=== PATIENT | female | born 1955 | race African-American/Black ===

== ENCOUNTER 2016-07-13 12:41 | Emergency (ER) | payer MEDICARE, OTHER ==
[~2016-07-13] VITALS: Ht 162.6 cm; Wt 97.5 kg
[~2016-07-13 12:41] MED LIST: AMLO10TA2 PO
[2016-07-13] MEDS ORDERED: LABETALOL 20 MG/4 ML DISP.SYRIN. IVP ONE ×2 (13:30→14:00)
--- NOTE | 2016-07-13 14:13 | EKG ---
[facility] [address] [place] [address] Test Date: 2016-07-13 Test Time: 13:29:56 Pat Name: RAMAKRISHNA PERDOMO Department: Room: Gender: F Analytical Chemist: : 1955 Requested By: YODIT ADAME Order Number: [id number] Reading MD: Dorothy Quinn Measurements Intervals [place] Rate: 83 P: 29 MA: 148 QRS: 7 QRSD: 78 T: 71 QT: 380 QTc: 447 Interpretive Statements SINUS RHYTHM. MISSING LEAD V 4. OTHERWISE NORMAL EKG. Electronically Signed On 07-15-2016 21:24:30 CDT by Dorothy Quinn
[2016-07-13] MEDS ORDERED: HYDR25TA9 PO (14:26)
--- NOTE | 2016-07-13 14:26 | PHYS DOC ---
Past Medical History Past Medical History: Anxiety, High Cholesterol, Hypertension Past Surgical History: , Other Additional Past Surgical Histo: "parotid gland" Alcohol Use: Rarely Drug Use: None Adult General Chief Complaint Chief Complaint: HYPERTENSION HPI HPI 61-year-old female presenting with high blood pressure. She reports headache. She denies vision changes. she denies polyuria. she denies chest pain. She denies shortness of breath. She describes her headache is sharp mild nonradiating and has been present for greater than 24 hours. She denies it being thunderclap headache. She denies numbness weakness or tingling. Review of systems is negative for chest pain shortness of breath abdominal pain nausea vomiting. All other review of systems is negative unless otherwise noted in history of present illness. Review of Systems Review of Systems SEE ABOVE. Current Medications Current Medications Current Medications Medications (Trade) Dose Ordered Sig/Yen Start Time Stop Time Status Last Admin Dose Admin Labetalol HCl (Normodyne) 20 mg 1X ONCE 07/13/16 14:00 07/13/16 14:01 DC Allergies Allergies Allergies Coded Allergies Type Severity Reaction Last Updated Verified No Known Drug Allergies 07/20/13 No Physical Exam Physical Exam Constitutional: Well developed, well nourished, no acute distress, non-toxic appearance. [] HENT: Normocephalic, atraumatic, bilateral external ears normal, oropharynx moist, no oral exudates, nose normal. [] Eyes: PERRLA, EOMI, conjunctiva normal, no discharge. [] Neck: Normal range of motion, no tenderness, supple, no stridor. [] Cardiovascular:Heart rate regular rhythm, no murmur [] Lungs & Thorax: Bilateral breath sounds clear to auscultation [] Abdomen: Bowel sounds normal, soft, no tenderness, no masses, no pulsatile masses. [] Skin: Warm, dry, no erythema, no rash. [] Back: No tenderness, no CVA tenderness. [] Extremities: No tenderness, no cyanosis, no clubbing, ROM intact, no edema. [] Neurologic: Alert and oriented X 3, normal motor function, normal sensory function, no focal deficits noted. [] Psychologic: Affect normal, judgement normal, mood normal. [] Current Patient Data Vital Signs Vital Signs Date Time Temp Pulse Resp B/P Pulse Ox O2 Delivery O2 Flow Rate FiO2 07/13/16 14:30 82 229/103 98 Room Air 07/13/16 14:00 20 07/13/16 12:44 97.9 97.9 Lab Values Laboratory Tests Test 07/13/16 13:53 POC Troponin I 0.00ng/ml (<0.08) EKG EKG [] Radiology/Procedures Radiology/Procedures [] Course & Med Decision Making Course & Med Decision Making Pertinent Labs and Imaging studies reviewed. (See chart for details) [] 61-year-old female presenting to the emergency department with significant hypertension around 200 systolic. The patient had a headache but was without evidence of end organ dysfunction. EKG not suggestive of ischemic changes. Blood work obtained which showed negative troponin. Otherwise creatinine within normal limits. Patient's blood pressure was treated with IV labetalol the emergency department. On reevaluation her headache had improved. I recommended she take oral fosy-rdd-dueudiq medications for her hypertension and recommended she see one of our primary care doctors to establish care and begin outpatient further evaluation workup and care for her chronic hypertension management. Face -to-face discharge instructions were given. Patient comfortable with plan. Dragon Disclaimer Dragon Disclaimer This electronic medical record was generated, in whole or in part, using a voice recognition dictation system. Departure Departure Impression: Primary Impression: Hypertension Disposition: HOME, SELF-CARE Condition: STABLE Referrals: NO PCP (PCP) HUMAIRA SOLORZANO MD Patient Instructions: Hypertension Additional Instructions: Thank you for allowing us to participate in your care today. Followup with your primary care physician in 3 days if your symptoms do not improve. If you do not have a primary care provider you can ask for a list of our primary care providers. Return to the emergency department you have any new or concerning findings. This should be evaluated by the primary care physician and any necessary consulting services for continued management within a few days after discharge. Return to emergency room if you have any new or concerning symptoms including but not limited to fever, chills, nausea, vomiting, intractable pain, any new rashes, chest pain, shortness of air, uncontrolled bleeding, difficulty breathing, and/or vision loss. Scripts Hydrochlorothiazide (Hydrochlorothiazide Tablet )25 Mg Tablet1 Tab PO DAILY # 14 TAB Ref 5 Prov:YODIT ADAME MD 07/13/16 YODIT ADAME MD Jul 13, 2016 14:26
[2016-07-13 14:30] VITALS: BP 229/103
[2016-07-13 22:25] LABS: POTASSIUM ISTAT 3.4 mmol/L (3.5-5.0)
== END 2016-07-13 14:54 | disposition home or self-care (01) ==
LOC: ER 12:41
DX: I10 Essential (primary) hypertension (principal); R51 Headache; E78.00 Pure hypercholesterolemia, unspecified; F41.9 Anxiety disorder, unspecified
CPT/HCPCS: 80047; 84484; 93005; 96374; 99284; J3490

== ENCOUNTER 2016-12-17 20:10 | Emergency (ER) | payer BC, OTHER ==
[~2016-12-17] VITALS: Ht 162.6 cm; Wt 102.5 kg
[~2016-12-17 20:10] MED LIST changes: +HYDR25TA9 PO
[2016-12-17 20:45] VITALS: BP 219/108
--- NOTE | 2016-12-17 21:46 | PHYS DOC ---
Past Medical History Past Medical History: Anxiety, High Cholesterol, Hypertension Past Surgical History: , Other Additional Past Surgical Histo: "parotid gland removed" Alcohol Use: Rarely Drug Use: None Adult General Chief Complaint Chief Complaint: INSECT BITE HPI HPI Patient is a 61 year old female with history of hypertension high cholesterol and anxiety who presents today with the worst stings as well as right foot/ ankle pain. Patient states she got stung by wasps at around 3 PM today and fell off the porch. Patient denies any anaphylactic reaction. Review of Systems Review of Systems Constitutional: Denies fever or chills [] Eyes: Denies change in visual acuity, redness, or eye pain [] HENT: Denies nasal congestion or sore throat [] Respiratory: Denies cough or shortness of breath [] Cardiovascular: No additional information not addressed in HPI [] GI: Denies abdominal pain, nausea, vomiting, bloody stools or diarrhea [] : Denies dysuria or hematuria [] Musculoskeletal: right foot/ankle pain Integument: wasp sting Neurologic: Denies headache, focal weakness or sensory changes [] Endocrine: Denies polyuria or polydipsia [] Current Medications Current Medications Current Medications Medications (Trade) Dose Ordered Sig/Yen Start Time Stop Time Status Last Admin Dose Admin Diphenhydramine HCl (Benadryl) 25 mg 1X ONCE 12/17/16 22:00 12/17/16 22:01 Famotidine (Pepcid) 20 mg 1X ONCE 12/17/16 22:00 12/17/16 22:01 Prednisone (Prednisone) 60 mg 1X ONCE 12/17/16 22:00 12/17/16 22:01 Allergies Allergies Allergies Coded Allergies Type Severity Reaction Last Updated Verified No Known Drug Allergies 07/20/13 No Physical Exam Physical Exam Constitutional: Well developed, well nourished, no acute distress, non-toxic appearance. [] HENT: Normocephalic, atraumatic, bilateral external ears normal, oropharynx moist, no oral exudates, nose normal. [] Eyes: PERRLA, EOMI, conjunctiva normal, no discharge. [] Neck: Normal range of motion, no tenderness, supple, no stridor. [] Cardiovascular:Heart rate regular rhythm, no murmur [] Lungs & Thorax: Bilateral breath sounds clear to auscultation [] Abdomen: Bowel sounds normal, soft, no tenderness, no masses, no pulsatile masses. [] Skin: An area of erythema noted on patient's right thigh consistent with an insect sting. Back: No tenderness, no CVA tenderness. [] Extremities: Right foot and ankle with no obvious deformity. No tenderness on palpation of the right foot or ankle. Full range of motion to the right foot and ankle. +2 right pedal pulse. Cap refill less than 2 seconds the right toes. Neurologic: Alert and oriented X 3, normal motor function, normal sensory function, no focal deficits noted. [] Psychologic: Affect normal, judgement normal, mood normal. [] Current Patient Data Vital Signs Vital Signs Date Time Temp Pulse Resp B/P (MAP) Pulse Ox O2 Delivery O2 Flow Rate FiO2 12/17/16 20:45 97.8 98 18 96 Room Air 97.8 EKG EKG [] Radiology/Procedures Radiology/Procedures [] Course & Med Decision Making Course & Med Decision Making Pertinent Labs and Imaging studies reviewed. (See chart for details) Patient is in the ED with the wasp stings. She does not have any anaphylactic reaction. She was started on prednisone and Benadryl and Pepcid in the ED. She was discharged with the same. She also sprained her foot/ankle when she fell off the porch running away from the worst. Right foot/ ankle was Zeke wrapped by the ED RN, neurovascular exam done by me is normal, cap refill less than 2 seconds. Ice elevation encouraged. Follow-up with orthopedic doctor in one week if pain continues. Dragon Disclaimer Dragon Disclaimer This electronic medical record was generated, in whole or in part, using a voice recognition dictation system. Departure Departure Impression: Primary Impression: Fall from height of greater than 3 feet Additional Impressions: Right ankle sprain Right foot sprain Wasp sting Disposition: 01 HOME, SELF-CARE Condition: STABLE Referrals: NO PCP (PCP) follow up with your doctor next week Patient Instructions: Ankle Sprain, Bee, Wasp, or Hornet Sting, Foot Sprain- Brief Additional Instructions: You were seen for wasps stings and right ankle and foot sprain. Ice and elevate the extremity. Take the prescribed medicines as ordered. Come back to the ED for any concerning or worsening symptoms. Scripts Diphenhydramine Hcl (BENADRYL) 25 Mg Capsule 1 CAP PO Q4HRS W/A, #30 CAP 1 Refill Prov: PRINCE LUECRO EDUAR 12/17/16 Famotidine (FAMOTIDINE) 20 Mg Tablet 20 MG PO DAILY, #7 TAB Prov: PRINCE LUCERO EDUAR 12/17/16 Prednisone (PREDNISONE) 50 Mg Tablet 1 TAB PO DAILY, #4 TAB Prov: PRINCE LUCERO EDUAR 12/17/16 Problem Qualifiers Additional Impressions: Right ankle sprain Encounter type: initial encounter Involved ligament of ankle: unspecified ligament Qualified Codes: S93.401A - Sprain of unspecified ligament of right ankle, initial encounter Right foot sprain Encounter type: initial encounter Qualified Codes: S93.601A - Unspecified sprain of right foot, initial encounter Wasp sting Encounter type: initial encounter Injury intent: accidental or unintentional Qualified Codes: T63.461A - Toxic effect of venom of wasps, accidental (unintentional), initial encounter PRINCE LUCERO EDUAR Dec 17, 2016 21:46
[2016-12-17] MEDS ORDERED: DIPH25CA58 PO (21:51)
[2016-12-17] MEDS ORDERED: FAMO20TA5 PO (21:51)
[2016-12-17] MEDS ORDERED: PRED50TA PO (21:51)
[2016-12-17] MEDS ORDERED: diphenhydrAMINE HCL 25 MG CAPSULE PO ONE (22:00)
[2016-12-17] MEDS ORDERED: predniSONE 20 MG TABLET PO ONE (22:00)
[2016-12-17] MEDS ORDERED: FAMOTIDINE 20 MG TABLET. PO ONE (22:00)
== END 2016-12-17 21:56 | disposition home or self-care (01) ==
LOC: ER 20:10
DX: S93.401A Sprain of unspecified ligament of right ankle, initial encounter (principal); S93.601A Unspecified sprain of right foot, initial encounter; T63.461A Toxic effect of venom of wasps, accidental (unintentional), initial encounter; I10 Essential (primary) hypertension; E78.00 Pure hypercholesterolemia, unspecified; F41.9 Anxiety disorder, unspecified; W17.89XA Other fall from one level to another, initial encounter; Y93.89 Activity, other specified; Y92.89 Other specified places as the place of occurrence of the external cause; Y99.8 Other external cause status
CPT/HCPCS: 99284; J7512; Q0163

== ENCOUNTER 2018-12-17 11:15 | Inpatient (IN) | payer BC, OTHER ==
[~2018-12-17] VITALS: Ht 162.6 cm; Wt 101.8 kg
[~2018-12-17 11:15] MED LIST changes: -AMLO10TA2 PO; +AMLO10TA8 PO; +DILT240C2 PO; +DIPH25CA58 PO; +FAMO20TA5 PO; +HYDR-2145 PO; +HYDR-2869 PO; -HYDR25TA9 PO; +LEVO75TA PO; +PRED50TA PO
[2018-12-17] MEDS: dilTIAZem IV PUSH 25 MG/5 ML VIAL IVP ONE ×2 (11:27→11:44)
[2018-12-17 11:39] LABS: BASO % 1 % (0-3); EOS # 0.1 x10^3/uL (0.0-0.7); EOS % 1 % (0-3); HEMATOCRIT 34.1 % (36.0-47.0); HEMOGLOBIN 11.9 g/dL (12.0-15.5); LYMPH # 1.1 x10^3/uL (1.0-4.8); LYMPH % 13 % (24-48); MEAN CORPUSCULAR HEMOGLOBIN 29 pg (25-35); MEAN CORPUSCULAR HGB CONC 35 g/dL (31-37); MEAN CORPUSCULAR VOLUME 84 fL (79-100); MONO # 1.1 x10^3/uL (0.0-1.1); MONO % 12 % (0-9); NEUT # 6.2 x10^3/uL (1.8-7.7); NEUT % 73 % (31-73); PLATELET COUNT 377 x10^3/uL (140-400); RED BLOOD COUNT 4.07 x10^6/uL (3.50-5.40); RED CELL DISTRIBUTION WIDTH 15.5 % (11.5-14.5); WHITE BLOOD COUNT 8.5 x10^3/uL (4.0-11.0)
[2018-12-17 11:48] LABS: PROTHROMBIN TIME PATIENT 14.1 SEC (11.7-14.0)
[2018-12-17 11:56] LABS: CALCIUM 8.8 mg/dL (8.5-10.1); CREATININE 1.1 mg/dL (0.6-1.0); GFR 61.1
[2018-12-17] MEDS ORDERED: ADENOSINE 6 MG/2 ML VIAL. IV ONE (12:00)
[2018-12-17] MEDS ORDERED: IV NORMAL SALINE 1000ML BAG 1,000 ML IV ONE (12:00)
[2018-12-17] MEDS ORDERED: fentaNYL PF VIAL 100 MCG/2 ML VIAL IV ONE (12:00)
[2018-12-17 12:01] LABS: ALBUMIN 3.1 g/dL (3.4-5.0); ALBUMIN/GLOBULIN RATIO 0.6 (1.0-1.7); MAGNESIUM 1.9 mg/dL (1.8-2.4); TOTAL BILIRUBIN 0.8 mg/dL (0.2-1.0)
--- NOTE | 2018-12-17 12:15 | RAD ---
PORTABLE CHEST 1V History: Palpitations Comparison: November 25, 2018 Findings: Single view of the chest is submitted. There is no infiltrate, pneumothorax, or effusion. Pericardial cardiac silhouette is again enlarged. Impression: 1. There is again enlargement of the pericardial cardiac silhouette. Electronically signed by: Ángel Kuhn MD (12/17/2018 12:12 PM) [facility]
[2018-12-17] MEDS ORDERED: dilTIAZem INJ 125 MG in IV DEXTROSE 5% 100ML 100 ML IV STA (12:29)
[2018-12-17] MEDS ORDERED: POTASSIUM CHLORIDE 20 MEQ TABLET.ER. PO ONE ×2 (12:30→15:15)
[2018-12-17] MEDS ORDERED: METOPROLOL TARTRATE 5 MG/5 ML VIAL. IVP ONE (12:45)
--- NOTE | 2018-12-17 12:58 | PHYS DOC ---
Past Medical History Past Medical History: Anxiety, High Cholesterol, Hypertension Past Surgical History: , Other Additional Past Surgical Histo: "parotid gland removed" Alcohol Use: None Drug Use: None Adult General Chief Complaint Chief Complaint: RAPID HEART RATE HPI HPI Patient is a 63 year old female who presents via EMS because of palpitation. Patient states she has had intermittent episodes of palpitations since 6 AM today without shortness of breath, dizziness, focal neuro deficit, nausea and vomiting. Patient states she had a few coughs with chest soreness. Patient had this same episode of palpitation about 2 weeks ago and had diagnosis of SVT and discharged home with Diltiazem also and hydralazine. She denies recent fever and chills, dehydration, urinary symptoms. Patient had adenosine 6 and 12 mg given by EMS without change of heart rate. EMS reported within 2 doses of Adenosine she had a short time of heart rate of atrial flutter. Review of Systems Review of Systems Constitutional: Denies fever or chills [] Eyes: Denies change in visual acuity, redness, or eye pain [] HENT: Denies nasal congestion or sore throat [] Respiratory: Denies cough or shortness of breath [] Cardiovascular: No additional information not addressed in HPI [] GI: Denies abdominal pain, nausea, vomiting, bloody stools or diarrhea [] : Denies dysuria or hematuria [] Musculoskeletal: Denies back pain or joint pain [] Integument: Denies rash or skin lesions [] Neurologic: Denies headache, focal weakness or sensory changes [] Endocrine: Denies polyuria or polydipsia [] All other systems were reviewed and found to be within normal limits, except as documented in this note. Current Medications Current Medications Current Medications Medications (Trade) Dose Ordered Sig/Yen Start Time Stop Time Status Last Admin Dose Admin Adenosine (Adenocard) 6 mg 1X ONCE 12/17/18 12:00 12/17/18 12:30 DC 12/17/18 12:04 6 MG Diltiazem HCl (Cardizem Iv Push) 20 mg 1X ONCE 12/17/18 11:30 12/17/18 11:31 DC 12/17/18 13:01 20 MG Diltiazem HCl 125 mg/Dextrose 125 ml @ 0 mls/hr 1X STAT 12/17/18 12:29 12/17/18 12:32 DC 12/17/18 12:49 5 MLS/HR Fentanyl Citrate (Fentanyl 2ml Vial) 50 mcg 1X ONCE 12/17/18 12:00 12/17/18 12:01 DC 12/17/18 12:04 50 MCG Metoprolol Tartrate (Lopressor Vial) 5 mg 1X ONCE 12/17/18 12:45 12/17/18 12:46 DC 12/17/18 13:28 5 MG Potassium Chloride (Klor-Con) 40 meq 1X ONCE 12/17/18 12:30 12/17/18 12:31 DC 12/17/18 12:49 40 MEQ Sodium Chloride 1,000 ml @ 1,000 mls/hr 1X ONCE 12/17/18 12:00 12/17/18 12:59 DC 12/17/18 12:04 1,000 MLS/HR Allergies Allergies Allergies Coded Allergies Type Severity Reaction Last Updated Verified No Known Drug Allergies 07/20/13 No Physical Exam Physical Exam Constitutional: Well developed, well nourished, mild distress, non-toxic appearance. [] HENT: Normocephalic, atraumatic. Eyes: PERRLA, EOMI, conjunctiva normal, no discharge. [] Neck: Normal range of motion, no tenderness, supple, no stridor. [] Cardiovascular: Tachycardia , no murmur [] Lungs & Thorax: Bilateral breath sounds clear to auscultation [] Abdomen: Bowel sounds normal, soft, no tenderness, no masses, no pulsatile masses. [] Skin: Warm, dry, no erythema, no rash. [] Back: No tenderness, no CVA tenderness. [] Extremities: No tenderness, no cyanosis, no clubbing, ROM intact, no edema. [] Neurologic: Alert and oriented X 3, no focal deficits noted. [] Psychologic: Affect anxious, judgement normal, mood normal. [] Current Patient Data Vital Signs Vital Signs Date Time Temp Pulse Resp B/P (MAP) Pulse Ox O2 Delivery O2 Flow Rate FiO2 12/17/18 13:28 160 175/99 12/17/18 11:23 98.7 18 99 Nasal Cannula 2.0 98.7 Lab Values Laboratory Tests Test 12/17/18 11:25 White Blood Count 8.5 x10^3/uL (4.0-11.0) Red Blood Count 4.07 x10^6/uL (3.50-5.40) Hemoglobin 11.9 g/dL (12.0-15.5) L Hematocrit 34.1 % (36.0-47.0) L Mean Corpuscular Volume 84 fL (79-100) Mean Corpuscular Hemoglobin 29 pg (25-35) Mean Corpuscular Hemoglobin Concent 35 g/dL (31-37) Red Cell Distribution Width 15.5 % (11.5-14.5) H Platelet Count 377 x10^3/uL (140-400) Neutrophils (%) (Auto) 73 % (31-73) Lymphocytes (%) (Auto) 13 % (24-48) L Monocytes (%) (Auto) 12 % (0-9) H Eosinophils (%) (Auto) 1 % (0-3) Basophils (%) (Auto) 1 % (0-3) Neutrophils # (Auto) 6.2 x10^3/uL (1.8-7.7) Lymphocytes # (Auto) 1.1 x10^3/uL (1.0-4.8) Monocytes # (Auto) 1.1 x10^3/uL (0.0-1.1) Eosinophils # (Auto) 0.1 x10^3/uL (0.0-0.7) Basophils # (Auto) 0.0 x10^3/uL (0.0-0.2) Prothrombin Time 14.1 SEC (11.7-14.0) H Prothrombin Time INR 1.1 (0.8-1.1) Sodium Level 139 mmol/L (136-145) Potassium Level 3.0 mmol/L (3.5-5.1) L Chloride Level 103 mmol/L (98-107) Carbon Dioxide Level 23 mmol/L (21-32) Anion Gap 13 (6-14) Blood Urea Nitrogen 18 mg/dL (7-20) Creatinine 1.1 mg/dL (0.6-1.0) H Estimated GFR (Cockcroft-Gault) 61.1 BUN/Creatinine Ratio 16 (6-20) Glucose Level 126 mg/dL (70-99) H Calcium Level 8.8 mg/dL (8.5-10.1) Magnesium Level 1.9 mg/dL (1.8-2.4) Total Bilirubin 0.8 mg/dL (0.2-1.0) Aspartate Amino Transferase (AST) 12 U/L (15-37) L Alanine Aminotransferase (ALT) 19 U/L (14-59) Alkaline Phosphatase 95 U/L (46-116) Creatine Kinase 63 U/L (26-192) Troponin I Quantitative < 0.017 ng/mL (0.000-0.055) AM-Szm-S-Type Natriuretic Peptide 558 pg/mL (0-124) H Total Protein 8.0 g/dL (6.4-8.2) Albumin 3.1 g/dL (3.4-5.0) L Albumin/Globulin Ratio 0.6 (1.0-1.7) L Lipase 58 U/L (73-393) L Laboratory Tests 12/17/18 11:25 Laboratory Tests 12/17/18 11:25 EKG EKG EKG interpreted by me. EKG at 1119 showed 60-162, ST abnormalities in inferior leads, no acute ST and T-wave elevation. Radiology/Procedures Radiology/Procedures [][facility] [address] [place] [address] IMAGING REPORT Signed PATIENT: RAMAKRISHNA PERDOMO ACCOUNT: [id number] : 1955 LOCATION: ER AGE: 63 SEX: F EXAM STATUS: REG ER ORD. PHYSICIAN: ALDO BEAUCHAMP MD REASON: palpitation PROCEDURE: PORTABLE CHEST 1V PORTABLE CHEST 1V History: Palpitations Comparison: November 25, 2018 Findings: Single view of the chest is submitted. There is no infiltrate, pneumothorax, or effusion. Pericardial cardiac silhouette is again enlarged. Impression: 1. There is again enlargement of the pericardial cardiac silhouette. Electronically signed by: Lavonne Kuhn MD (12/17/2018 12:12 PM) [facility] DICTATED and SIGNED BY: LAVONNE KUHN MD DATE: 12/17/18 1212 Course & Med Decision Making Course & Med Decision Making Pertinent Labs and Imaging studies reviewed. (See chart for details) Evaluation of patient in ER showed 63-year-old female patient with history of SVT brought in by EMS because of another episode of SVT that did not respond to adenosine 600 mg given by EMS. Patient had Cardizem in ER [facility] heart rate 140s and then treated with IV fluid and metoprolol and Cardizem 28. Patient had potassium of 3.0 and treated with oral potassium. Heart rate changed to sinus rhythm at rate of 94 after injection of Lopressor. Patient requiring admission for further evaluation and treatment. Discussed with Dr. Mercedes who is in agreement with admission. Discussed findings and plan with patient and family, who acknowledge understanding and agreement. Dragon Disclaimer Dragon Disclaimer This electronic medical record was generated, in whole or in part, using a voice recognition dictation system. Departure Departure Impression: Primary Impression: Tachyarrhythmia Additional Impressions: Hypokalemia Anemia Disposition: ADMITTED INPATIENT Admitting Physician: MARVIN Condition: IMPROVED Referrals: NO PCP (PCP) Critical Care Time Critical care time was 80 minutes exclusive of procedures. The HEART Score for CP Pts HEART Score for Chest Pain: HEART Score for Chest Pain Response (Comments) Value History Slighlty/Non-Suspicious 0 ECG Nonspecific Repolarizatio 1 Age >45 - < 65 1 Risk Factors 1 or 2 Risk Factors 1 Troponin < Normal Limit 0 Total 3 Risk Factors: Risk Factors: DM, Current or recent (<one month) smoker, HTN, HLP, family history of CAD, obesity. Risk Scores: Score 0 - 3: 2.5% MACE over next 6 weeks - Discharge Home Score 4 - 6: 20.3% MACE over next 6 weeks - Admit for Clinical Observation Score 7 - 10: 72.7% MACE over next 6 weeks - Early Invasive Strategies Problem Qualifiers Additional Impressions: Anemia Anemia type: unspecified type Qualified Codes: D64.9 - Anemia, unspecified ALDO BEAUCHAMP MD Dec 17, 2018 12:58
[2018-12-17 13:50] VITALS: BP 153/87
[2018-12-17 15:00] VITALS: BP 91/60
--- NOTE | 2018-12-17 17:07 | PDOC1 ---
History and Physical Date of Admission Date of Admission DATE: 12/17/18 TIME: 17:03 Source Source: Chart review, Patient History of Present Illness History of Present Illness Ms. Moncada, is a 63 year old female who presents via EMS because of palpitation. She has sudden onset of shortness of breath with dizziness and then chest pain, with pain to her back. She did have, nausea and vomiting that are now much improved, prior DC here on D[facility] for AFIB rVR EMS gave . adenosine 6 and 12 mg given by EMS without change of heart rate. afullter/fib in the ER here, dilt gtt started Past Medical History Cardiovascular: HTN, Other (arrythmia) Psych: No pertinent hx Rheumatologic: No pertinent hx Renal/: No pertinent hx Endocrine: Hypothyroidism Past Surgical History Past Surgical History: No pertinent history Family History Family History: Hypertension Family History: Grandparents Social History Smoke: No ALCOHOL: rare Drugs: None Current Problem List Problem List Problems Medical Problems: (1) Anemia Status: Acute (2) Hypokalemia Status: Acute (3) Tachyarrhythmia Status: Acute Current Medications Current Medications Current Medications Diltiazem HCl (Cardizem Iv Push) 20 mg 1X ONCE IVP Last administered on 12/17/18at 13:01; Start 12/17/18 at 11:30; Stop 12/17/18 at 11:31; Status DC Sodium Chloride 1,000 ml @ 1,000 mls/hr 1X ONCE IV Last administered on 12/17/18at 12:04; Start 12/17/18 at 12:00; Stop 12/17/18 at 12:59; Status DC Fentanyl Citrate (Fentanyl 2ml Vial) 50 mcg 1X ONCE IV Last administered on 12/17/18at 12:04; Start 12/17/18 at 12:00; Stop 12/17/18 at 12:01; Status DC Adenosine (Adenocard) 6 mg 1X ONCE IV Last administered on 12/17/18at 12:04; Start 12/17/18 at 12:00; Stop 12/17/18 at 12:30; Status DC Potassium Chloride (Klor-Con) 40 meq 1X ONCE PO Last administered on 12/17/18at 12:49; Start 12/17/18 at 12:30; Stop 12/17/18 at 12:31; Status DC Diltiazem HCl 125 mg/Dextrose 125 ml @ 0 mls/hr 1X STAT IV Last administered on 12/17/18at 12:49; Start 12/17/18 at 12:29; Stop 12/17/18 at 12:32; Status DC Metoprolol Tartrate (Lopressor Vial) 5 mg 1X ONCE IVP Last administered on 12/17/18at 13:28; Start 12/17/18 at 12:45; Stop 12/17/18 at 12:46; Status DC Potassium Chloride (Klor-Con) 40 meq 1X ONCE PO ; Start 12/17/18 at 15:15; Stop 12/17/18 at 15:16; Status DC Active Scripts Active Reported Synthroid (Levothyroxine Sodium) 75 Mcg Tablet 1 Tab PO DAILY Cardizem Cd (Diltiazem Hcl) 240 Mg Cap.er.24h 1 Cap PO DAILY Hydralazine Hcl 50 Mg Tablet 1 Tab PO BID Allergies Allergies: Coded Allergies: No Known Drug Allergies (Unverified , 07/20/13) ROS General: No: Chills, Night Sweats, Fatigue, Malaise, Appetite, Other PSYCHOLOGICAL ROS: No: Anxiety, Behavioral Disorder, Concentration difficultie, Decreased libido, Depression, Disorientation, Hallucinations, Hostility, Irritablity, Memory difficulties, Mood Swings, Obsessive thoughts, Physical abuse, Sexual abuse, Sleep disturbances, Suicidal ideation, Other Eyes: No Blurry vision, No Decreased vision, No Double vision, No Dry eyes, No Excessive tearing, No Eye Pain, No Itchy Eyes, No Loss of vision, No Photophobia, No Scotomata, No Uses contacts, No Uses glasses, No Other HEENT: No: Heacaches, Visual Changes, Hearing change, Nasal congestion, Nasal discharge, Oral lesions, Sinus pain, Sore Throat, Epistaxis, Sneezing, Snoring, Tinnitus, Vertigo, Vocal changes, Other Respiratory: No: Cough, Hemoptysis, Orthopnea, Pleuritic Pain, Shortness of breath, SOB with excertion, Sputum Changes, Stridor, Tachypnea, Wheezing, Other Cardiovascular: No Chest Pain, No Palpitations, No Orthopnea, No Paroxysmal Noc. Dyspnea, No Edema, No Lt Headedness, No Other Gastrointestinal: No Nausea, No Vomiting, No Abdominal Pain, No Diarrhea, No Constipation, No Melena, No Hematochezia, No Other Genitourinary: No Dysuria, No Frequency, No Incontinence, No Hematuria, No Retention, No Discharge, No Urgency, No Pain, No Flank Pain, No Other, No , No , No , No , No , No , No Musculoskeletal: Yes Joint Stiffness; No Gait Disturbance, No Joint Pain, No Joint Swelling, No Muscle Pain, No Muscular Weakness, No Pain In:, No Swelling In:, No Other Neurological: No Behavorial Changes, No Bowel/Bladder ControlChng, No Confusion, No Dizziness, No Gait Disturbance, No Headaches, No Impaired Coord/balance, No Memory Loss, No Numbness/Tingling, No Seizures, No Speech Problems, No Tremors, No Visual Changes, No Weakness, No Other Skin: Yes Dry Skin; No Eczema, No Hair Changes, No Lumps, No Mole Changes, No Mottling, No Nail Changes, No Pruritus, No Rash, No Skin Lesion Changes, No Other, No Acne Physical Exam General: Alert, Oriented X3, No acute distress HEENT: PERRLA, EOMI, Mucous membr. moist/pink Lungs: Clear to auscultation, Normal air movement Heart: S1S2, RRR, no gallops, no murmurs Abdomen: Normal bowel sounds, Soft Extremities: No cyanosis, No edema, Normal pulses Skin: No rashes Neuro: Normal gait, Normal speech, Normal tone, Sensation intact, Cranial nerves 3-12 NL Psych/Mental Status: Mood NL Vitals Vitals Vital Signs Date Time Temp Pulse Resp B/P (MAP) Pulse Ox O2 Delivery O2 Flow Rate FiO2 12/17/18 15:00 97.5 65 16 91/60 (70) 93 Room Air 97.5 12/17/18 13:50 2.0 Labs Labs Laboratory Tests Test 12/17/18 11:25 White Blood Count 8.5 x10^3/uL (4.0-11.0) Red Blood Count 4.07 x10^6/uL (3.50-5.40) Hemoglobin 11.9 g/dL (12.0-15.5) Hematocrit 34.1 % (36.0-47.0) Mean Corpuscular Volume 84 fL (79-100) Mean Corpuscular Hemoglobin 29 pg (25-35) Mean Corpuscular Hemoglobin Concent 35 g/dL (31-37) Red Cell Distribution Width 15.5 % (11.5-14.5) Platelet Count 377 x10^3/uL (140-400) Neutrophils (%) (Auto) 73 % (31-73) Lymphocytes (%) (Auto) 13 % (24-48) Monocytes (%) (Auto) 12 % (0-9) Eosinophils (%) (Auto) 1 % (0-3) Basophils (%) (Auto) 1 % (0-3) Neutrophils # (Auto) 6.2 x10^3/uL (1.8-7.7) Lymphocytes # (Auto) 1.1 x10^3/uL (1.0-4.8) Monocytes # (Auto) 1.1 x10^3/uL (0.0-1.1) Eosinophils # (Auto) 0.1 x10^3/uL (0.0-0.7) Basophils # (Auto) 0.0 x10^3/uL (0.0-0.2) Prothrombin Time 14.1 SEC (11.7-14.0) Prothromb Time International Ratio 1.1 (0.8-1.1) Sodium Level 139 mmol/L (136-145) Potassium Level 3.0 mmol/L (3.5-5.1) Chloride Level 103 mmol/L (98-107) Carbon Dioxide Level 23 mmol/L (21-32) Anion Gap 13 (6-14) Blood Urea Nitrogen 18 mg/dL (7-20) Creatinine 1.1 mg/dL (0.6-1.0) Estimated GFR (Cockcroft-Gault) 61.1 BUN/Creatinine Ratio 16 (6-20) Glucose Level 126 mg/dL (70-99) Calcium Level 8.8 mg/dL (8.5-10.1) Magnesium Level 1.9 mg/dL (1.8-2.4) Total Bilirubin 0.8 mg/dL (0.2-1.0) Aspartate Amino Transf (AST/SGOT) 12 U/L (15-37) Alanine Aminotransferase (ALT/SGPT) 19 U/L (14-59) Alkaline Phosphatase 95 U/L (46-116) Creatine Kinase 63 U/L (26-192) Troponin I Quantitative < 0.017 ng/mL (0.000-0.055) DE-Zdo-M-Type Natriuretic Peptide 558 pg/mL (0-124) Total Protein 8.0 g/dL (6.4-8.2) Albumin 3.1 g/dL (3.4-5.0) Albumin/Globulin Ratio 0.6 (1.0-1.7) Lipase 58 U/L (73-393) Laboratory Tests Test 12/17/18 11:25 White Blood Count 8.5 x10^3/uL (4.0-11.0) Red Blood Count 4.07 x10^6/uL (3.50-5.40) Hemoglobin 11.9 g/dL (12.0-15.5) Hematocrit 34.1 % (36.0-47.0) Mean Corpuscular Volume 84 fL (79-100) Mean Corpuscular Hemoglobin 29 pg (25-35) Mean Corpuscular Hemoglobin Concent 35 g/dL (31-37) Red Cell Distribution Width 15.5 % (11.5-14.5) Platelet Count 377 x10^3/uL (140-400) Neutrophils (%) (Auto) 73 % (31-73) Lymphocytes (%) (Auto) 13 % (24-48) Monocytes (%) (Auto) 12 % (0-9) Eosinophils (%) (Auto) 1 % (0-3) Basophils (%) (Auto) 1 % (0-3) Neutrophils # (Auto) 6.2 x10^3/uL (1.8-7.7) Lymphocytes # (Auto) 1.1 x10^3/uL (1.0-4.8) Monocytes # (Auto) 1.1 x10^3/uL (0.0-1.1) Eosinophils # (Auto) 0.1 x10^3/uL (0.0-0.7) Basophils # (Auto) 0.0 x10^3/uL (0.0-0.2) Prothrombin Time 14.1 SEC (11.7-14.0) Prothromb Time International Ratio 1.1 (0.8-1.1) Sodium Level 139 mmol/L (136-145) Potassium Level 3.0 mmol/L (3.5-5.1) Chloride Level 103 mmol/L (98-107) Carbon Dioxide Level 23 mmol/L (21-32) Anion Gap 13 (6-14) Blood Urea Nitrogen 18 mg/dL (7-20) Creatinine 1.1 mg/dL (0.6-1.0) Estimated GFR (Cockcroft-Gault) 61.1 BUN/Creatinine Ratio 16 (6-20) Glucose Level 126 mg/dL (70-99) Calcium Level 8.8 mg/dL (8.5-10.1) Magnesium Level 1.9 mg/dL (1.8-2.4) Total Bilirubin 0.8 mg/dL (0.2-1.0) Aspartate Amino Transf (AST/SGOT) 12 U/L (15-37) Alanine Aminotransferase (ALT/SGPT) 19 U/L (14-59) Alkaline Phosphatase 95 U/L (46-116) Creatine Kinase 63 U/L (26-192) Troponin I Quantitative < 0.017 ng/mL (0.000-0.055) TZ-Unj-A-Type Natriuretic Peptide 558 pg/mL (0-124) Total Protein 8.0 g/dL (6.4-8.2) Albumin 3.1 g/dL (3.4-5.0) Albumin/Globulin Ratio 0.6 (1.0-1.7) Lipase 58 U/L (73-393) VTE Prophylaxis Ordered VTE Prophylaxis Devices: No VTE Pharmacological Prophylaxi: Yes Assessment/Plan Assessment/Plan chest pain SVT in field then afib RVR here, with afib RVR acute diastolic CHF hypokalemia, may have provoked, 80 meq orderd, check in AM hypothryoid, check TSH obese, BMI 38 admit obs DEYANIRA GOLD MD Dec 17, 2018 17:07
--- NOTE | 2018-12-17 18:30 | EKG ---
[facility] [address] [place] [address] Test Date: 2018-12-17 Test Time: 11:19:23 Pat Name: RAMAKRISHNA PERDOMO Department: Room: Gender: F [employer]: : [id number] Requested By: ALDO BEAUCHAMP Order Number: [id number] Reading MD: Measurements Intervals [place] Rate: 162 P: [place]: QRS: 17 QRSD: 76 T: 5 QT: 290 QTc: 483 Interpretive Statements SUPRAVENTRICULAR TACHYCARDIA ST ABNORMALITY, POSSIBLE INFERIOR SUBENDOCARDIAL INJURY ABNORMAL ECG RI6.01 Unconfirmed report No previous ECG available for comparison
[2018-12-17 19:00] VITALS: BP 155/78
[2018-12-17 23:00] VITALS: BP 150/74
[2018-12-18] VITALS (15 sets, daily range): BP systolic 140–185; BP diastolic 70–93
[2018-12-18] MEDS ORDERED: dilTIAZem INJ 125 MG in IV DEXTROSE 5% 100ML 100 ML IV ONE (00:30)
[2018-12-18 04:32] LABS: BASO % 0 % (0-3); EOS # 0.1 x10^3/uL (0.0-0.7); EOS % 1 % (0-3); HEMATOCRIT 31.1 % (36.0-47.0); HEMOGLOBIN 10.5 g/dL (12.0-15.5); LYMPH # 0.7 x10^3/uL (1.0-4.8); LYMPH % 9 % (24-48); MEAN CORPUSCULAR HEMOGLOBIN 28 pg (25-35); MEAN CORPUSCULAR HGB CONC 34 g/dL (31-37); MEAN CORPUSCULAR VOLUME 85 fL (79-100); MONO % 13 % (0-9); NEUT # 5.6 x10^3/uL (1.8-7.7); NEUT % 76 % (31-73); PLATELET COUNT 325 x10^3/uL (140-400); RED BLOOD COUNT 3.68 x10^6/uL (3.50-5.40); WHITE BLOOD COUNT 7.4 x10^3/uL (4.0-11.0)
[2018-12-18 05:09] LABS: ALBUMIN 2.7 g/dL (3.4-5.0); ALBUMIN/GLOBULIN RATIO 0.6 (1.0-1.7); CALCIUM 8.6 mg/dL (8.5-10.1); CREATININE 1.1 mg/dL (0.6-1.0); GFR 61.1; POTASSIUM 3.8 mmol/L (3.5-5.1); TOTAL BILIRUBIN 0.6 mg/dL (0.2-1.0); TOTAL PROTEIN 7.3 g/dL (6.4-8.2)
--- NOTE | 2018-12-18 08:25 | PDOC ---
PROGRESS NOTES Chief Complaint Chief Complaint chest pain SVT in field then afib RVR here, with afib RVR acute diastolic CHF hypokalemia, may have provoked, 80 meq given to 3.8 hypothyroid - TSH WNL obese, BMI 38 History of Present Illness History of Present Illness Ms. Moncada is a 63 yo F w/ PMHx HTN, hypothyroidism who presents via EMS because of palpitations with associated SOB, dizziness and chest pain radiating to her back. Also with Nausea, no vomiting. Noted in SVT with no response to adenosine, found in aflutter/afib, started on diltiazem infusion. 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 No ETOH or heavy caffeine use. No diuretics. Given oral diltiazem and IV this morning. She is concerned about why this keeps happening, feeling a bit weak. Echo last visit with RVSP 41mmHg, otherwise WNL. Vitals Vitals Vital Signs Date Time Temp Pulse Resp B/P (MAP) Pulse Ox O2 Delivery O2 Flow Rate FiO2 12/18/18 07:31 98.4 88 16 185/93 (123) 96 Room Air 98.4 12/17/18 15:00 2.0 Physical Exam General: Alert, Oriented X3, No acute distress Lungs: Clear Abdomen: Normal bowel sounds, Soft Extremities: No cyanosis, No edema, Normal pulses Skin: No rashes Labs LABS Laboratory Tests Test 12/17/18 11:25 12/18/18 03:25 White Blood Count 8.5 x10^3/uL (4.0-11.0) 7.4 x10^3/uL (4.0-11.0) Red Blood Count 4.07 x10^6/uL (3.50-5.40) 3.68 x10^6/uL (3.50-5.40) Hemoglobin 11.9 g/dL (12.0-15.5) 10.5 g/dL (12.0-15.5) Hematocrit 34.1 % (36.0-47.0) 31.1 % (36.0-47.0) Mean Corpuscular Volume 84 fL (79-100) 85 fL (79-100) Mean Corpuscular Hemoglobin 29 pg (25-35) 28 pg (25-35) Mean Corpuscular Hemoglobin Concent 35 g/dL (31-37) 34 g/dL (31-37) Red Cell Distribution Width 15.5 % (11.5-14.5) 16.0 % (11.5-14.5) Platelet Count 377 x10^3/uL (140-400) 325 x10^3/uL (140-400) Neutrophils (%) (Auto) 73 % (31-73) 76 % (31-73) Lymphocytes (%) (Auto) 13 % (24-48) 9 % (24-48) Monocytes (%) (Auto) 12 % (0-9) 13 % (0-9) Eosinophils (%) (Auto) 1 % (0-3) 1 % (0-3) Basophils (%) (Auto) 1 % (0-3) 0 % (0-3) Neutrophils # (Auto) 6.2 x10^3/uL (1.8-7.7) 5.6 x10^3/uL (1.8-7.7) Lymphocytes # (Auto) 1.1 x10^3/uL (1.0-4.8) 0.7 x10^3/uL (1.0-4.8) Monocytes # (Auto) 1.1 x10^3/uL (0.0-1.1) 1.0 x10^3/uL (0.0-1.1) Eosinophils # (Auto) 0.1 x10^3/uL (0.0-0.7) 0.1 x10^3/uL (0.0-0.7) Basophils # (Auto) 0.0 x10^3/uL (0.0-0.2) 0.0 x10^3/uL (0.0-0.2) Prothrombin Time 14.1 SEC (11.7-14.0) Prothromb Time International Ratio 1.1 (0.8-1.1) Sodium Level 139 mmol/L (136-145) 139 mmol/L (136-145) Potassium Level 3.0 mmol/L (3.5-5.1) 3.8 mmol/L (3.5-5.1) Chloride Level 103 mmol/L (98-107) 105 mmol/L (98-107) Carbon Dioxide Level 23 mmol/L (21-32) 24 mmol/L (21-32) Anion Gap 13 (6-14) 10 (6-14) Blood Urea Nitrogen 18 mg/dL (7-20) 16 mg/dL (7-20) Creatinine 1.1 mg/dL (0.6-1.0) 1.1 mg/dL (0.6-1.0) Estimated GFR (Cockcroft-Gault) 61.1 61.1 BUN/Creatinine Ratio 16 (6-20) 15 (6-20) Glucose Level 126 mg/dL (70-99) 114 mg/dL (70-99) Calcium Level 8.8 mg/dL (8.5-10.1) 8.6 mg/dL (8.5-10.1) Magnesium Level 1.9 mg/dL (1.8-2.4) Total Bilirubin 0.8 mg/dL (0.2-1.0) 0.6 mg/dL (0.2-1.0) Aspartate Amino Transf (AST/SGOT) 12 U/L (15-37) 12 U/L (15-37) Alanine Aminotransferase (ALT/SGPT) 19 U/L (14-59) 14 U/L (14-59) Alkaline Phosphatase 95 U/L (46-116) 78 U/L (46-116) Creatine Kinase 63 U/L (26-192) Troponin I Quantitative < 0.017 ng/mL (0.000-0.055) QX-Kaf-D-Type Natriuretic Peptide 558 pg/mL (0-124) Total Protein 8.0 g/dL (6.4-8.2) 7.3 g/dL (6.4-8.2) Albumin 3.1 g/dL (3.4-5.0) 2.7 g/dL (3.4-5.0) Albumin/Globulin Ratio 0.6 (1.0-1.7) 0.6 (1.0-1.7) Lipase 58 U/L (73-393) Thyroid Stimulating Hormone (TSH) 4.021 uIU/mL (0.358-3.74) Assessment and Plan Assessmemt and Plan Problems Medical Problems: (1) Acute diastolic congestive heart failure Status: Acute (2) Anemia Status: Acute (3) Atrial fibrillation with RVR Status: Acute (4) Hypokalemia Status: Acute (5) Hypokalemia Status: Acute (6) Hypothyroid Status: Chronic (7) Obese Status: Chronic (8) SVT (supraventricular tachycardia) Status: Acute (9) Tachyarrhythmia Status: Acute Comment Review of Relevant I have reviewed the following items ari (where applicable) has been applied. Labs Laboratory Tests Test 12/17/18 11:25 12/18/18 03:25 White Blood Count 8.5 x10^3/uL (4.0-11.0) 7.4 x10^3/uL (4.0-11.0) Red Blood Count 4.07 x10^6/uL (3.50-5.40) 3.68 x10^6/uL (3.50-5.40) Hemoglobin 11.9 g/dL (12.0-15.5) 10.5 g/dL (12.0-15.5) Hematocrit 34.1 % (36.0-47.0) 31.1 % (36.0-47.0) Mean Corpuscular Volume 84 fL (79-100) 85 fL (79-100) Mean Corpuscular Hemoglobin 29 pg (25-35) 28 pg (25-35) Mean Corpuscular Hemoglobin Concent 35 g/dL (31-37) 34 g/dL (31-37) Red Cell Distribution Width 15.5 % (11.5-14.5) 16.0 % (11.5-14.5) Platelet Count 377 x10^3/uL (140-400) 325 x10^3/uL (140-400) Neutrophils (%) (Auto) 73 % (31-73) 76 % (31-73) Lymphocytes (%) (Auto) 13 % (24-48) 9 % (24-48) Monocytes (%) (Auto) 12 % (0-9) 13 % (0-9) Eosinophils (%) (Auto) 1 % (0-3) 1 % (0-3) Basophils (%) (Auto) 1 % (0-3) 0 % (0-3) Neutrophils # (Auto) 6.2 x10^3/uL (1.8-7.7) 5.6 x10^3/uL (1.8-7.7) Lymphocytes # (Auto) 1.1 x10^3/uL (1.0-4.8) 0.7 x10^3/uL (1.0-4.8) Monocytes # (Auto) 1.1 x10^3/uL (0.0-1.1) 1.0 x10^3/uL (0.0-1.1) Eosinophils # (Auto) 0.1 x10^3/uL (0.0-0.7) 0.1 x10^3/uL (0.0-0.7) Basophils # (Auto) 0.0 x10^3/uL (0.0-0.2) 0.0 x10^3/uL (0.0-0.2) Prothrombin Time 14.1 SEC (11.7-14.0) Prothromb Time International Ratio 1.1 (0.8-1.1) Sodium Level 139 mmol/L (136-145) 139 mmol/L (136-145) Potassium Level 3.0 mmol/L (3.5-5.1) 3.8 mmol/L (3.5-5.1) Chloride Level 103 mmol/L (98-107) 105 mmol/L (98-107) Carbon Dioxide Level 23 mmol/L (21-32) 24 mmol/L (21-32) Anion Gap 13 (6-14) 10 (6-14) Blood Urea Nitrogen 18 mg/dL (7-20) 16 mg/dL (7-20) Creatinine 1.1 mg/dL (0.6-1.0) 1.1 mg/dL (0.6-1.0) Estimated GFR (Cockcroft-Gault) 61.1 61.1 BUN/Creatinine Ratio 16 (6-20) 15 (6-20) Glucose Level 126 mg/dL (70-99) 114 mg/dL (70-99) Calcium Level 8.8 mg/dL (8.5-10.1) 8.6 mg/dL (8.5-10.1) Magnesium Level 1.9 mg/dL (1.8-2.4) Total Bilirubin 0.8 mg/dL (0.2-1.0) 0.6 mg/dL (0.2-1.0) Aspartate Amino Transf (AST/SGOT) 12 U/L (15-37) 12 U/L (15-37) Alanine Aminotransferase (ALT/SGPT) 19 U/L (14-59) 14 U/L (14-59) Alkaline Phosphatase 95 U/L (46-116) 78 U/L (46-116) Creatine Kinase 63 U/L (26-192) Troponin I Quantitative < 0.017 ng/mL (0.000-0.055) BA-Ohg-E-Type Natriuretic Peptide 558 pg/mL (0-124) Total Protein 8.0 g/dL (6.4-8.2) 7.3 g/dL (6.4-8.2) Albumin 3.1 g/dL (3.4-5.0) 2.7 g/dL (3.4-5.0) Albumin/Globulin Ratio 0.6 (1.0-1.7) 0.6 (1.0-1.7) Lipase 58 U/L (73-393) Thyroid Stimulating Hormone (TSH) 4.021 uIU/mL (0.358-3.74) Laboratory Tests Test 12/17/18 11:25 12/18/18 03:25 White Blood Count 8.5 x10^3/uL (4.0-11.0) 7.4 x10^3/uL (4.0-11.0) Red Blood Count 4.07 x10^6/uL (3.50-5.40) 3.68 x10^6/uL (3.50-5.40) Hemoglobin 11.9 g/dL (12.0-15.5) 10.5 g/dL (12.0-15.5) Hematocrit 34.1 % (36.0-47.0) 31.1 % (36.0-47.0) Mean Corpuscular Volume 84 fL (79-100) 85 fL (79-100) Mean Corpuscular Hemoglobin 29 pg (25-35) 28 pg (25-35) Mean Corpuscular Hemoglobin Concent 35 g/dL (31-37) 34 g/dL (31-37) Red Cell Distribution Width 15.5 % (11.5-14.5) 16.0 % (11.5-14.5) Platelet Count 377 x10^3/uL (140-400) 325 x10^3/uL (140-400) Neutrophils (%) (Auto) 73 % (31-73) 76 % (31-73) Lymphocytes (%) (Auto) 13 % (24-48) 9 % (24-48) Monocytes (%) (Auto) 12 % (0-9) 13 % (0-9) Eosinophils (%) (Auto) 1 % (0-3) 1 % (0-3) Basophils (%) (Auto) 1 % (0-3) 0 % (0-3) Neutrophils # (Auto) 6.2 x10^3/uL (1.8-7.7) 5.6 x10^3/uL (1.8-7.7) Lymphocytes # (Auto) 1.1 x10^3/uL (1.0-4.8) 0.7 x10^3/uL (1.0-4.8) Monocytes # (Auto) 1.1 x10^3/uL (0.0-1.1) 1.0 x10^3/uL (0.0-1.1) Eosinophils # (Auto) 0.1 x10^3/uL (0.0-0.7) 0.1 x10^3/uL (0.0-0.7) Basophils # (Auto) 0.0 x10^3/uL (0.0-0.2) 0.0 x10^3/uL (0.0-0.2) Prothrombin Time 14.1 SEC (11.7-14.0) Prothromb Time International Ratio 1.1 (0.8-1.1) Sodium Level 139 mmol/L (136-145) 139 mmol/L (136-145) Potassium Level 3.0 mmol/L (3.5-5.1) 3.8 mmol/L (3.5-5.1) Chloride Level 103 mmol/L (98-107) 105 mmol/L (98-107) Carbon Dioxide Level 23 mmol/L (21-32) 24 mmol/L (21-32) Anion Gap 13 (6-14) 10 (6-14) Blood Urea Nitrogen 18 mg/dL (7-20) 16 mg/dL (7-20) Creatinine 1.1 mg/dL (0.6-1.0) 1.1 mg/dL (0.6-1.0) Estimated GFR (Cockcroft-Gault) 61.1 61.1 BUN/Creatinine Ratio 16 (6-20) 15 (6-20) Glucose Level 126 mg/dL (70-99) 114 mg/dL (70-99) Calcium Level 8.8 mg/dL (8.5-10.1) 8.6 mg/dL (8.5-10.1) Magnesium Level 1.9 mg/dL (1.8-2.4) Total Bilirubin 0.8 mg/dL (0.2-1.0) 0.6 mg/dL (0.2-1.0) Aspartate Amino Transf (AST/SGOT) 12 U/L (15-37) 12 U/L (15-37) Alanine Aminotransferase (ALT/SGPT) 19 U/L (14-59) 14 U/L (14-59) Alkaline Phosphatase 95 U/L (46-116) 78 U/L (46-116) Creatine Kinase 63 U/L (26-192) Troponin I Quantitative < 0.017 ng/mL (0.000-0.055) BS-Mea-U-Type Natriuretic Peptide 558 pg/mL (0-124) Total Protein 8.0 g/dL (6.4-8.2) 7.3 g/dL (6.4-8.2) Albumin 3.1 g/dL (3.4-5.0) 2.7 g/dL (3.4-5.0) Albumin/Globulin Ratio 0.6 (1.0-1.7) 0.6 (1.0-1.7) Lipase 58 U/L (73-393) Thyroid Stimulating Hormone (TSH) 4.021 uIU/mL (0.358-3.74) Medications Current Medications Diltiazem HCl (Cardizem Iv Push) 20 mg 1X ONCE IVP Last administered on 12/17/18at 13:01; Start 12/17/18 at 11:30; Stop 12/17/18 at 11:31; Status DC Sodium Chloride 1,000 ml @ 1,000 mls/hr 1X ONCE IV Last administered on 12/17/18at 12:04; Start 12/17/18 at 12:00; Stop 12/17/18 at 12:59; Status DC Fentanyl Citrate (Fentanyl 2ml Vial) 50 mcg 1X ONCE IV Last administered on 12/17/18at 12:04; Start 12/17/18 at 12:00; Stop 12/17/18 at 12:01; Status DC Adenosine (Adenocard) 6 mg 1X ONCE IV Last administered on 12/17/18at 12:04; Start 12/17/18 at 12:00; Stop 12/17/18 at 12:30; Status DC Potassium Chloride (Klor-Con) 40 meq 1X ONCE PO Last administered on 12/17/18at 12:49; Start 12/17/18 at 12:30; Stop 12/17/18 at 12:31; Status DC Diltiazem HCl 125 mg/Dextrose 125 ml @ 0 mls/hr 1X STAT IV Last administered on 12/17/18at 12:49; Start 12/17/18 at 12:29; Stop 12/17/18 at 12:32; Status DC Metoprolol Tartrate (Lopressor Vial) 5 mg 1X ONCE IVP Last administered on 12/17/18at 13:28; Start 12/17/18 at 12:45; Stop 12/17/18 at 12:46; Status DC Potassium Chloride (Klor-Con) 40 meq 1X ONCE PO Last administered on 12/17/18at 17:25; Start 12/17/18 at 15:15; Stop 12/17/18 at 15:16; Status DC Diltiazem HCl (Cardizem 24hr Cd) 240 mg DAILY PO ; Start 12/18/18 at 09:00 Hydralazine HCl (Apresoline) 50 mg BID PO Last administered on 12/17/18at 21:12; Start 12/17/18 at 21:00 Levothyroxine Sodium (Synthroid) 75 mcg DAILY PO ; Start 12/18/18 at 09:00 Enoxaparin Sodium (Lovenox Per Pharmacy Prophylaxis Dosing) 1 each PRN DAILY PRN MC SEE COMMENTS; Start 12/17/18 at 17:15 Enoxaparin Sodium (Lovenox 40mg Syringe) 40 mg DAILY SQ ; Start 12/18/18 at 09:00 Diltiazem HCl 125 mg/Dextrose 125 ml @ 0 mls/hr 1X ONCE IV Last administered on 12/18/18at 02:03; Start 12/18/18 at 00:30; Stop 12/18/18 at 00:31; Status DC Active Scripts Active Reported Synthroid (Levothyroxine Sodium) 75 Mcg Tablet 1 Tab PO DAILY Cardizem Cd (Diltiazem Hcl) 240 Mg Cap.er.24h 1 Cap PO DAILY Hydralazine Hcl 50 Mg Tablet 1 Tab PO BID Vitals/I & O Vital Sign - Last 24 Hours 12/17/18 12/17/18 12/17/18 12/17/18 11:23 11:35 12:01 12:20 Temp 98.7 98.7 Pulse 162 164 158 158 Resp 18 16 16 16 B/P (MAP) 169/110 (129) 176/107 (130) 147/88 (107) 155/78 (103) Pulse Ox 99 99 98 98 O2 Delivery Nasal Cannula Nasal Cannula Nasal Cannula Nasal Cannula O2 Flow Rate 2.0 2.0 2.0 2.0 12/17/18 12/17/18 12/17/18 12/17/18 12:50 13:01 13:28 13:32 Pulse 155 164 160 94 Resp 16 16 B/P (MAP) 155/93 (113) 151/70 175/99 153/81 (105) Pulse Ox 98 99 O2 Delivery Nasal Cannula Nasal Cannula O2 Flow Rate 2.0 2.0 12/17/18 12/17/18 12/17/18 12/17/18 13:50 15:00 15:00 19:00 Temp 97.5 97.5 98.1 97.5 97.5 98.1 Pulse 83 65 82 Resp 16 16 18 B/P (MAP) 153/87 (109) 91/60 (70) 155/78 (103) Pulse Ox 100 93 100 O2 Delivery Room Air Room Air Room Air O2 Flow Rate 2.0 2.0 12/17/18 12/17/18 12/17/18 12/18/18 20:00 21:12 23:00 03:32 Temp 98.9 98.9 98.9 98.9 Pulse 82 96 91 Resp 16 20 B/P (MAP) 156/81 150/74 (99) 166/87 (113) Pulse Ox 96 100 O2 Delivery Room Air Room Air Room Air 12/18/18 07:31 Temp 98.4 98.4 Pulse 88 Resp 16 B/P (MAP) 185/93 (123) Pulse Ox 96 O2 Delivery Room Air Intake and Output 12/17/18 12/17/18 12/18/18 14:59 22:59 06:59 Intake Total 1000 ml 155 ml 512 ml Output Total 0 ml 1 ml Balance 1000 ml 155 ml 511 ml ANAND NAVARRETE MD Dec 18, 2018 08:25
[2018-12-18] MEDS: LEVOTHYROXINE 75 MCG TABLET PO SCH (08:30)
[2018-12-18] MEDS ORDERED: ENOXAPARIN 40 MG/0.4 ML SYRINGE. SQ SCH (09:00)
--- NOTE | 2018-12-18 12:25 | NUR ---
Found patient's IV cardizem drip off, patient stated it has been off for about 20 mins, restarted at this time.
--- NOTE | 2018-12-18 13:33 | PDOC2 ---
CARDIAC CONSULT DATE OF CONSULT Date of Consult DATE: 12/18/18 TIME: 13:19 REASON FOR CONSULT Reason for Consult: tachyarrhythmia REFERRING PHYSICIAN Referring Physician: Dr. Arias SOURCE Source: Chart review, Patient HISTORY OF PRESENT ILLNESS HISTORY OF PRESENT ILLNESS This is a 63 yo female who presented secondary to palpitation and shortness of breath. Was followed by our service 3 weeks ago for SVT. Cardizem was initiated. Outpatient event monitor was arranged, but patient has not worse as she though package was for granddaughter as they share the same name. Patient reports that she had been doing well until Tuesday night. Began having palpitations and was dizzy. Could feel that her heart was beating fast. Went to bed and woke up Tuesday feeling well initially. Then began to have palpitations agains. Palpitations persisted so she called EMS. Was noted with tachyarrhythmia by EMS. Adenosine 6mg followed by 12mg was administered. Heart rate slowed enough to note patient was in atrial flutter. Cardizem gtt was initiated. Converted back to NSR on cardizem gtt. PAST MEDICAL HISTORY Cardiovascular: HTN, Other (SVT) Musculoskeletal: Osteoarthritis Rheumatologic: Gout Endocrine: Hypothyroidism FAMILY HISTORY Family History: Diabetes, High Cholestrol SOCIAL HISTORY Smoke: No ALCOHOL: none Drugs: None Lives: with Family CURRENT MEDICATIONS CURRENT MEDICATIONS Current Medications Medications (Trade) Dose Ordered Sig/Yen Route PRN Reason Start Time Stop Time Status Last Admin Dose Admin Potassium Chloride (Klor-Con) 40 meq 1X ONCE PO 12/17/18 15:15 12/17/18 15:16 DC 12/17/18 17:25 Diltiazem HCl (Cardizem 24hr Cd) 240 mg DAILY PO 12/18/18 09:00 12/18/18 08:33 Hydralazine HCl (Apresoline) 50 mg BID PO 12/17/18 21:00 12/18/18 08:33 Levothyroxine Sodium (Synthroid) 75 mcg DAILY PO 12/18/18 09:00 12/18/18 08:33 Diltiazem HCl 125 mg/Dextrose 125 ml @ 0 mls/hr 1X ONCE IV 12/18/18 00:30 12/18/18 00:31 DC 12/18/18 02:03 ALLERGIES ALLERGIES: Coded Allergies: No Known Drug Allergies (Unverified , 07/20/13) ROS Review of System 14 point ROS conducted with pertinent positives noted above in HPI. PHYSICAL EXAM General: Alert, Oriented X3, Cooperative, No acute distress HEENT: Atraumatic Lungs: Clear to auscultation, Normal air movement Heart: Regular rate, Normal S1, Normal S2 Abdomen: Soft, No tenderness Extremities: No edema, Normal pulses Skin: No significant lesion Neuro: Normal speech, Sensation intact Psych/Mental Status: Mental status NL, Mood NL MUSCULOSKELETAL: Osteoarthritic changes both hands VITALS/I&O VITALS/I&O: Vital Signs Date Time Temp Pulse Resp B/P (MAP) Pulse Ox O2 Delivery O2 Flow Rate FiO2 12/18/18 10:50 98.3 95 16 170/77 (108) 98 Room Air 98.3 12/17/18 15:00 2.0 I & O 12/17/18 12/17/18 12/18/18 15:00 23:00 07:00 Intake Total 1000 ml 155 ml 512 ml Output Total 0 ml 1 ml Balance 1000 ml 155 ml 511 ml LABS Lab: Laboratory Tests Test 12/18/18 03:25 White Blood Count 7.4 x10^3/uL (4.0-11.0) Red Blood Count 3.68 x10^6/uL (3.50-5.40) Hemoglobin 10.5 g/dL (12.0-15.5) L Hematocrit 31.1 % (36.0-47.0) L Mean Corpuscular Volume 85 fL (79-100) Mean Corpuscular Hemoglobin 28 pg (25-35) Mean Corpuscular Hemoglobin Concent 34 g/dL (31-37) Red Cell Distribution Width 16.0 % (11.5-14.5) H Platelet Count 325 x10^3/uL (140-400) Neutrophils (%) (Auto) 76 % (31-73) H Lymphocytes (%) (Auto) 9 % (24-48) L Monocytes (%) (Auto) 13 % (0-9) H Eosinophils (%) (Auto) 1 % (0-3) Basophils (%) (Auto) 0 % (0-3) Neutrophils # (Auto) 5.6 x10^3/uL (1.8-7.7) Lymphocytes # (Auto) 0.7 x10^3/uL (1.0-4.8) L Monocytes # (Auto) 1.0 x10^3/uL (0.0-1.1) Eosinophils # (Auto) 0.1 x10^3/uL (0.0-0.7) Basophils # (Auto) 0.0 x10^3/uL (0.0-0.2) Sodium Level 139 mmol/L (136-145) Potassium Level 3.8 mmol/L (3.5-5.1) Chloride Level 105 mmol/L (98-107) Carbon Dioxide Level 24 mmol/L (21-32) Anion Gap 10 (6-14) Blood Urea Nitrogen 16 mg/dL (7-20) Creatinine 1.1 mg/dL (0.6-1.0) H Estimated GFR (Cockcroft-Gault) 61.1 BUN/Creatinine Ratio 15 (6-20) Glucose Level 114 mg/dL (70-99) H Calcium Level 8.6 mg/dL (8.5-10.1) Total Bilirubin 0.6 mg/dL (0.2-1.0) Aspartate Amino Transferase (AST) 12 U/L (15-37) L Alanine Aminotransferase (ALT) 14 U/L (14-59) Alkaline Phosphatase 78 U/L (46-116) Total Protein 7.3 g/dL (6.4-8.2) Albumin 2.7 g/dL (3.4-5.0) L Albumin/Globulin Ratio 0.6 (1.0-1.7) L Thyroid Stimulating Hormone (TSH) 4.021 uIU/mL (0.358-3.74) H Laboratory Tests 12/18/18 03:25 Laboratory Tests 12/18/18 03:25 ECHOCARDIOGRAM ECHOCARDIOGRAM <Conclusion> The left ventricular systolic function is normal and the ejection fraction is within normal range. The Ejection Fraction is 65-70%. There is normal LV segmental wall motion. Doppler and Color Flow revealed mild tricuspid regurgitation. The PA pressure was estimated at 41 mmHg. DATE: 11/27/18 0840 ASSESSMENT/PLAN ASSESSMENT/PLAN 1. Tachyarrhythmia, palpitations. Adenosine 6mg followed by 12mg administered by EMS. HR slowed, patient noted in atrial flutter. Cardizem gtt initiated. 2. H/o SVT; noted 3 weeks ago. Oral Cardizem initiated- reports compliance with meds. recent echo with preserved LV systolic function. 3. Accelerated hypertension; remains elevated 4. Hypokalemia; replaced 5. Hypothyroidism; as per PCP Recommendations Given recurrent tachyarrhythmias ,will start Sotalol for rhythm maintenance Add Eliquis for stroke prevention. EKG in am to note QTc Resume hydralazine. Add lisinopril Consider outpatient ischemic evaluation NIA LAMB APRN Dec 18, 2018 13:33
[2018-12-18] MEDS ORDERED: dilTIAZem HCL 30 MG TABLET PO ONE (15:30)
[2018-12-18] MEDS: APIXABAN 5 MG TABLET. PO SCH ×2 (15:44→20:59)
[2018-12-18] MEDS: SOTALOL 80 MG TABLET. PO SCH ×2 (15:46→21:00)
--- NOTE | 2018-12-18 15:59 | NUR ---
SS following for discharge planning. SS reviewed pt chart. Pt is from home with spouse and is currently on room air. No discharge needs noted at this time. SS will continue to follow for discharge planning.
[2018-12-18] MEDS: LISINOPRIL 20 MG TABLET PO SCH (17:15)
--- NOTE | 2018-12-18 18:03 | NUR ---
Patient refused lisinopril, states "it does no good for her", & that she has studied up on it.
[2018-12-18] MEDS ORDERED: ONDANSETRON PF 4 MG/2 ML VIAL. IV PRN (19:00)
[2018-12-18] MEDS: IPRATRPIUM/ALBUTEROL 0.5/2.5MG 3 ML NEBU. NEB SCH (20:16)
[2018-12-18] MEDS: guaiFENesin DM 200MG/20MG 10 ML SYRUP PO PRN (20:21)
[2018-12-18 23:07] LABS: HEMOGLOBIN A1C 5.6 % (4.8-5.6)
[2018-12-19] VITALS (8 sets, daily range): BP systolic 141–185; BP diastolic 72–103
[2018-12-19] MEDS: IPRATRPIUM/ALBUTEROL 0.5/2.5MG 3 ML NEBU. NEB SCH ×3 (08:01→17:22)
[2018-12-19] MEDS: SOTALOL 80 MG TABLET. PO SCH (08:27)
[2018-12-19] MEDS: APIXABAN 5 MG TABLET. PO SCH (08:27)
[2018-12-19] MEDS: LEVOTHYROXINE 75 MCG TABLET PO SCH (08:27)
--- NOTE | 2018-12-19 08:39 | PDOC ---
PROGRESS NOTES Chief Complaint Chief Complaint chest pain SVT in field then afib RVR here, with afib RVR acute diastolic CHF hypokalemia, may have provoked, 80 meq given to 3.8 hypothyroid - TSH WNL obese, BMI 38 History of Present Illness History of Present Illness Ms. Moncada is a 63 yo F w/ PMHx HTN, hypothyroidism who presents via EMS because of palpitations with associated SOB, dizziness and chest pain radiating to her back. Also with Nausea, no vomiting. Noted in SVT with no response to adenosine, found in aflutter/afib, started on diltiazem infusion. 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 No ETOH or heavy caffeine use. No diuretics. Given oral diltiazem and IV 12/18/18 in the morning but did not improve until sotalol was initiated by cardiology after echo returned with normal EF. She is concerned about why this keeps happening, feeling a bit weak. Echo last visit with RVSP 41mmHg, otherwise WNL. Mucinex helped her cough. wishes to go home now that her heart rate is under control. Vitals Vitals Vital Signs Date Time Temp Pulse Resp B/P (MAP) Pulse Ox O2 Delivery O2 Flow Rate FiO2 12/19/18 08:29 78 184/103 12/19/18 08:03 97 Room Air 12/19/18 07:00 98.7 18 98.7 Physical Exam General: Alert, Oriented X3, Cooperative, No acute distress Heart: Regular rate, Normal S1, Normal S2 Lungs: Clear Abdomen: Soft, No tenderness Extremities: No edema, Normal pulses Skin: No significant lesion Assessment and Plan Assessmemt and Plan Problems Medical Problems: (1) Acute diastolic congestive heart failure Status: Acute (2) Anemia Status: Acute (3) Atrial fibrillation with RVR Status: Acute (4) Hypokalemia Status: Acute (5) Hypokalemia Status: Acute (6) Hypothyroid Status: Chronic (7) Obese Status: Chronic (8) SVT (supraventricular tachycardia) Status: Acute (9) Tachyarrhythmia Status: Acute Comment Review of Relevant I have reviewed the following items ari (where applicable) has been applied. Labs Laboratory Tests Test 12/17/18 11:25 12/18/18 03:25 White Blood Count 8.5 x10^3/uL (4.0-11.0) 7.4 x10^3/uL (4.0-11.0) Red Blood Count 4.07 x10^6/uL (3.50-5.40) 3.68 x10^6/uL (3.50-5.40) Hemoglobin 11.9 g/dL (12.0-15.5) 10.5 g/dL (12.0-15.5) Hematocrit 34.1 % (36.0-47.0) 31.1 % (36.0-47.0) Mean Corpuscular Volume 84 fL (79-100) 85 fL (79-100) Mean Corpuscular Hemoglobin 29 pg (25-35) 28 pg (25-35) Mean Corpuscular Hemoglobin Concent 35 g/dL (31-37) 34 g/dL (31-37) Red Cell Distribution Width 15.5 % (11.5-14.5) 16.0 % (11.5-14.5) Platelet Count 377 x10^3/uL (140-400) 325 x10^3/uL (140-400) Neutrophils (%) (Auto) 73 % (31-73) 76 % (31-73) Lymphocytes (%) (Auto) 13 % (24-48) 9 % (24-48) Monocytes (%) (Auto) 12 % (0-9) 13 % (0-9) Eosinophils (%) (Auto) 1 % (0-3) 1 % (0-3) Basophils (%) (Auto) 1 % (0-3) 0 % (0-3) Neutrophils # (Auto) 6.2 x10^3/uL (1.8-7.7) 5.6 x10^3/uL (1.8-7.7) Lymphocytes # (Auto) 1.1 x10^3/uL (1.0-4.8) 0.7 x10^3/uL (1.0-4.8) Monocytes # (Auto) 1.1 x10^3/uL (0.0-1.1) 1.0 x10^3/uL (0.0-1.1) Eosinophils # (Auto) 0.1 x10^3/uL (0.0-0.7) 0.1 x10^3/uL (0.0-0.7) Basophils # (Auto) 0.0 x10^3/uL (0.0-0.2) 0.0 x10^3/uL (0.0-0.2) Prothrombin Time 14.1 SEC (11.7-14.0) Prothromb Time International Ratio 1.1 (0.8-1.1) Sodium Level 139 mmol/L (136-145) 139 mmol/L (136-145) Potassium Level 3.0 mmol/L (3.5-5.1) 3.8 mmol/L (3.5-5.1) Chloride Level 103 mmol/L (98-107) 105 mmol/L (98-107) Carbon Dioxide Level 23 mmol/L (21-32) 24 mmol/L (21-32) Anion Gap 13 (6-14) 10 (6-14) Blood Urea Nitrogen 18 mg/dL (7-20) 16 mg/dL (7-20) Creatinine 1.1 mg/dL (0.6-1.0) 1.1 mg/dL (0.6-1.0) Estimated GFR (Cockcroft-Gault) 61.1 61.1 BUN/Creatinine Ratio 16 (6-20) 15 (6-20) Glucose Level 126 mg/dL (70-99) 114 mg/dL (70-99) Calcium Level 8.8 mg/dL (8.5-10.1) 8.6 mg/dL (8.5-10.1) Magnesium Level 1.9 mg/dL (1.8-2.4) Total Bilirubin 0.8 mg/dL (0.2-1.0) 0.6 mg/dL (0.2-1.0) Aspartate Amino Transf (AST/SGOT) 12 U/L (15-37) 12 U/L (15-37) Alanine Aminotransferase (ALT/SGPT) 19 U/L (14-59) 14 U/L (14-59) Alkaline Phosphatase 95 U/L (46-116) 78 U/L (46-116) Creatine Kinase 63 U/L (26-192) Troponin I Quantitative < 0.017 ng/mL (0.000-0.055) HT-Bck-X-Type Natriuretic Peptide 558 pg/mL (0-124) Total Protein 8.0 g/dL (6.4-8.2) 7.3 g/dL (6.4-8.2) Albumin 3.1 g/dL (3.4-5.0) 2.7 g/dL (3.4-5.0) Albumin/Globulin Ratio 0.6 (1.0-1.7) 0.6 (1.0-1.7) Lipase 58 U/L (73-393) Hemoglobin A1c 5.6 % (4.8-5.6) Thyroid Stimulating Hormone (TSH) 4.021 uIU/mL (0.358-3.74) Medications Current Medications Diltiazem HCl (Cardizem Iv Push) 20 mg 1X ONCE IVP Last administered on 12/17/18 13:01; Start 12/17/18 at 11:30; Stop 12/17/18 at 11:31; Status DC Sodium Chloride 1,000 ml @ 1,000 mls/hr 1X ONCE IV Last administered on 12/17/18 12:04; Start 12/17/18 at 12:00; Stop 12/17/18 at 12:59; Status DC Fentanyl Citrate (Fentanyl 2ml Vial) 50 mcg 1X ONCE IV Last administered on 12/17/18 12:04; Start 12/17/18 at 12:00; Stop 12/17/18 at 12:01; Status DC Adenosine (Adenocard) 6 mg 1X ONCE IV Last administered on 12/17/18 12:04; Start 12/17/18 at 12:00; Stop 12/17/18 at 12:30; Status DC Potassium Chloride (Klor-Con) 40 meq 1X ONCE PO Last administered on 12/17/18 12:49; Start 12/17/18 at 12:30; Stop 12/17/18 at 12:31; Status DC Diltiazem HCl 125 mg/Dextrose 125 ml @ 0 mls/hr 1X STAT IV Last administered on 12/17/18 12:49; Start 12/17/18 at 12:29; Stop 12/17/18 at 12:32; Status DC Metoprolol Tartrate (Lopressor Vial) 5 mg 1X ONCE IVP Last administered on 12/17/18at 13:28; Start 12/17/18 at 12:45; Stop 12/17/18 at 12:46; Status DC Potassium Chloride (Klor-Con) 40 meq 1X ONCE PO Last administered on 12/17/18at 17:25; Start 12/17/18 at 15:15; Stop 12/17/18 at 15:16; Status DC Diltiazem HCl (Cardizem 24hr Cd) 240 mg DAILY PO Last administered on 12/18/18 08:33; Start 12/18/18 at 09:00; Stop 12/18/18 at 15:29; Status DC Hydralazine HCl (Apresoline) 50 mg BID PO Last administered on 12/19/18 08:29; Start 12/17/18 at 21:00 Levothyroxine Sodium (Synthroid) 75 mcg DAILY PO Last administered on 12/19/18 08:29; Start 12/18/18 at 09:00 Enoxaparin Sodium (Lovenox Per Pharmacy Prophylaxis Dosing) 1 each PRN DAILY PRN MC SEE COMMENTS; Start 12/17/18 at 17:15; Stop 12/18/18 at 17:15; Status DC Enoxaparin Sodium (Lovenox 40mg Syringe) 40 mg DAILY SQ ; Start 12/18/18 at 09:00; Stop 12/18/18 at 15:37; Status DC Diltiazem HCl 125 mg/Dextrose 125 ml @ 0 mls/hr 1X ONCE IV Last administered on 12/18/18at 02:03; Start 12/18/18 at 00:30; Stop 12/18/18 at 15:29; Status DC Diltiazem HCl (Cardizem) 60 mg 1X ONCE PO ; Start 12/18/18 at 15:30; Stop 12/18/18 at 15:31; Status Cancel Sotalol HCl (Betapace) 80 mg BID PO Last administered on 12/19/18 08:29; Start 12/18/18 at 15:30 Apixaban (Eliquis) 5 mg BID PO Last administered on 12/19/18 08:29; Start 12/18/18 at 16:00 Lisinopril (Prinivil) 20 mg DAILY PO ; Start 12/18/18 at 17:15 Albuterol/ Ipratropium (Duoneb) 3 ml RTQID NEB Last administered on 12/19/18at 08:01; Start 12/18/18 at 20:00 Guaifenesin (Robitussin Dm) 10 ml PRN Q4HRS PRN PO COUGH Last administered on 12/18/18at 20:22; Start 12/18/18 at 19:00 Ondansetron HCl (Zofran) 4 mg PRN Q6HRS PRN IV NAUSEA/VOMITING; Start 12/18/18 at 19:00 Active Scripts Active Reported Synthroid (Levothyroxine Sodium) 75 Mcg Tablet 1 Tab PO DAILY Cardizem Cd (Diltiazem Hcl) 240 Mg Cap.er.24h 1 Cap PO DAILY Hydralazine Hcl 50 Mg Tablet 1 Tab PO BID Vitals/I & O Vital Sign - Last 24 Hours 12/18/18 12/18/18 12/18/18 12/18/18 09:35 10:35 10:50 11:35 Temp 98.3 98.3 Pulse 96 92 95 92 Resp 16 B/P (MAP) 170/80 (110) 181/80 (113) 170/77 (108) 177/85 (115) Pulse Ox 98 O2 Delivery Room Air 12/18/18 12/18/18 12/18/18 12/18/18 12:35 14:35 14:51 15:45 Temp 98.4 98.4 Pulse 94 94 99 96 Resp 16 B/P (MAP) 162/85 (110) 161/81 (107) 173/81 (111) 177/76 (109) Pulse Ox 97 O2 Delivery Room Air 12/18/18 12/18/18 12/18/18 12/18/18 15:46 16:35 17:13 19:54 Temp 98.4 98.4 Pulse 98 82 72 69 Resp 18 B/P (MAP) 177/76 164/88 (113) 152/79 (103) 155/84 (107) Pulse Ox 98 O2 Delivery Room Air 12/18/18 12/18/18 12/18/18 12/18/18 20:00 20:17 21:00 21:00 Pulse 79 78 B/P (MAP) 155/84 155/84 Pulse Ox 98 O2 Delivery Room Air Room Air 12/18/18 12/19/18 12/19/18 12/19/18 22:36 02:48 07:00 08:03 Temp 98.2 98.0 98.7 98.2 98.0 98.7 Pulse 78 79 77 Resp 20 18 18 B/P (MAP) 140/70 (93) 176/86 (116) 184/103 (130) Pulse Ox 94 96 97 97 O2 Delivery Room Air Room Air Room Air Room Air 12/19/18 12/19/18 08:29 08:29 Pulse 78 78 B/P (MAP) 184/103 184/103 Intake and Output 12/18/18 12/18/18 12/19/18 15:00 23:00 07:00 Intake Total 480 ml 800 ml 600 ml Balance 480 ml 800 ml 600 ml ANAND NAVARRETE MD Dec 19, 2018 08:39
[2018-12-19] MEDS: LISINOPRIL 20 MG TABLET PO SCH (09:00)
--- NOTE | 2018-12-19 10:03 | EKG ---
[facility] [address] [place] [address] Test Date: 2018-12-19 Test Time: 09:41:13 Pat Name: RAMAKRISHNA PERDOMO Department: Room: 211 1 Gender: F Ticket Counter: ISMAEL : [id number] Requested By: NIA LAMB Order Number: [id number] Reading MD: Measurements Intervals [place] Rate: 80 P: 0 [place]: 154 QRS: 45 QRSD: 76 T: 59 QT: 422 QTc: 491 Interpretive Statements SINUS RHYTHM PROLONGED QT NO SPECIFIC ECG ABNORMALITIES RI6.01 Unconfirmed report Compared to ECG 11/25/2018 21:06:52 Prolonged QT interval now present Sinus tachycardia no longer present T-wave abnormality no longer present ST (T wave) deviation no longer present
[2018-12-19] MEDS ORDERED: ENALAPRILAT 2.5 MG/2 ML VIAL. IVP ONE (12:00)
[2018-12-19] MEDS ORDERED: LOSA-73 PO (12:05)
[2018-12-19] MEDS ORDERED: APIX5TAB PO (12:05)
[2018-12-19] MEDS: guaiFENesin DM 200MG/20MG 10 ML SYRUP PO PRN (13:21)
[2018-12-19] MEDS ORDERED: GUAI5SYR PO (13:25)
--- NOTE | 2018-12-19 13:30 | PDOC3 ---
Discharge Summary Visit Information Date of Admission: Dec 17, 2018 Date of Discharge: Dec 19, 2018 Admitting Diagnosis: Palpitations Final Diagnosis Problems Medical Problems: (1) Acute diastolic congestive heart failure Status: Acute (2) Anemia Status: Acute (3) Atrial fibrillation with RVR Status: Acute (4) Hypokalemia Status: Acute (5) Hypokalemia Status: Acute (6) Hypothyroid Status: Chronic (7) Obese Status: Chronic (8) SVT (supraventricular tachycardia) Status: Acute (9) Tachyarrhythmia Status: Acute Brief Hospital Course Allergies Allergies Coded Allergies Type Severity Reaction Last Updated Verified No Known Drug Allergies 07/20/13 No Vital Signs Vital Signs Date Time Temp Pulse Resp B/P (MAP) Pulse Ox O2 Delivery O2 Flow Rate FiO2 12/19/18 13:21 83 141/72 (95) 12/19/18 13:20 Room Air 12/19/18 11:00 97.9 18 97 97.9 Lab Results Laboratory Tests Test 12/18/18 03:25 White Blood Count 7.4 x10^3/uL (4.0-11.0) Red Blood Count 3.68 x10^6/uL (3.50-5.40) Hemoglobin 10.5 g/dL (12.0-15.5) Hematocrit 31.1 % (36.0-47.0) Mean Corpuscular Volume 85 fL (79-100) Mean Corpuscular Hemoglobin 28 pg (25-35) Mean Corpuscular Hemoglobin Concent 34 g/dL (31-37) Red Cell Distribution Width 16.0 % (11.5-14.5) Platelet Count 325 x10^3/uL (140-400) Neutrophils (%) (Auto) 76 % (31-73) Lymphocytes (%) (Auto) 9 % (24-48) Monocytes (%) (Auto) 13 % (0-9) Eosinophils (%) (Auto) 1 % (0-3) Basophils (%) (Auto) 0 % (0-3) Neutrophils # (Auto) 5.6 x10^3/uL (1.8-7.7) Lymphocytes # (Auto) 0.7 x10^3/uL (1.0-4.8) Monocytes # (Auto) 1.0 x10^3/uL (0.0-1.1) Eosinophils # (Auto) 0.1 x10^3/uL (0.0-0.7) Basophils # (Auto) 0.0 x10^3/uL (0.0-0.2) Sodium Level 139 mmol/L (136-145) Potassium Level 3.8 mmol/L (3.5-5.1) Chloride Level 105 mmol/L (98-107) Carbon Dioxide Level 24 mmol/L (21-32) Anion Gap 10 (6-14) Blood Urea Nitrogen 16 mg/dL (7-20) Creatinine 1.1 mg/dL (0.6-1.0) Estimated GFR (Cockcroft-Gault) 61.1 BUN/Creatinine Ratio 15 (6-20) Glucose Level 114 mg/dL (70-99) Hemoglobin A1c 5.6 % (4.8-5.6) Calcium Level 8.6 mg/dL (8.5-10.1) Total Bilirubin 0.6 mg/dL (0.2-1.0) Aspartate Amino Transf (AST/SGOT) 12 U/L (15-37) Alanine Aminotransferase (ALT/SGPT) 14 U/L (14-59) Alkaline Phosphatase 78 U/L (46-116) Total Protein 7.3 g/dL (6.4-8.2) Albumin 2.7 g/dL (3.4-5.0) Albumin/Globulin Ratio 0.6 (1.0-1.7) Thyroid Stimulating Hormone (TSH) 4.021 uIU/mL (0.358-3.74) Brief Hospital Course Ms. Moncada is a 63 yo F w/ PMHx HTN, hypothyroidism who presents via EMS because of palpitations with associated SOB, dizziness and chest pain radiating to her back. Also with Nausea, no vomiting. Noted in SVT with no response to adenosine, found in aflutter/afib, started on diltiazem infusion. 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 No ETOH or heavy caffeine use. No diuretics. Given oral diltiazem and IV 12/18/18 in the morning but did not improve until sotalol was initiated by cardiology after echo returned with normal EF. She is concerned about why this keeps happening, feeling a bit weak. Echo last visit with RVSP 41mmHg, otherwise WNL. Mucinex helped her cough. wishes to go home now that her heart rate is under control. chest pain SVT in field then afib RVR here, with afib RVR acute diastolic CHF hypokalemia, may have provoked, 80 meq given to 3.8, started on losartan hypothyroid - TSH WNL obese, BMI 38 Greater than 30 minutes spent on d/c Discharge Information Condition at Discharge: Improved Follow Up: Weeks (1) Disposition/Orders: D/C to Home Scheduled Apixaban (Eliquis) 5 Mg Tablet, 5 MG PO BID for Afib for 30 Days, #60 Ref 2 Prescribed by: ANAND NAVARRETE MD on 12/19/18 1205 Diltiazem Hcl (Cardizem Cd) 240 Mg Cap.er.24h, 1 CAP PO DAILY for abnormal heart rhythm, #30 Ref 5 (Reported) Entered as Reported by: LISE CUMMINGS on 11/27/18 172 Last Action: Continued on 12/17/181701 by DEYANIRA GOLD Hydralazine Hcl (Hydralazine Hcl) 50 Mg Tablet, 1 TAB PO BID for HTN, #180 Ref 3 (Reported) Entered as Reported by: LISE CUMMINGS on 11/27/18 172 Last Action: Continued on 12/17/181701 by DEYANIRA GOLD Levothyroxine Sodium (Synthroid) 75 Mcg Tablet, 1 TAB PO DAILY for hypothyroid, #30 Ref 5 (Reported) Entered as Reported by: LISE CUMMINGS on 11/27/18 172 Last Action: Continued on 12/17/181701 by DEYANIRA GOLD Losartan Potassium (Cozaar ) 50 Mg Tablet, 50 MG PO DAILY for HTN for 30 Days, #30 Ref 2 Prescribed by: ANAND NAVARRETE MD on 12/19/18 1205 Scheduled PRN Guaifenesin/Dextromethorphan (Guaifenesin Dm Syrup) 5 Ml Syrup, 10 ML PO PRN Q4HRS PRN for COUGH for 30 Days, #120 Prescribed by: ANAND NAVARRETE MD on 12/19/18 1325 ANAND NAVARRETE MD Dec 19, 2018 13:30
[2018-12-19] MEDS ORDERED: LOSARTAN POTASSIUM 50 MG TABLET. PO SCH (15:00)
[2018-12-19] MEDS ORDERED: SOTA80TA48 PO (17:54)
--- NOTE | 2018-12-19 18:50 | NUR ---
Discharge Note: RAMAKRISHNA PERDOMO [address] [place] [address] Discharge instructions and discharge home medications reviewed with Patient and a copy given. All questions have been answered and understanding verbalized. The following instructions and handouts were given: discharge instructions, new med info, heart info, hypokalemia info, hypothyroidism info, etc Discontinued lines and drains: Peripheral IV intact. Patient discharged to Home or Self Care with Family Member via [facility] at 1850.
== END 2018-12-19 18:50 | disposition home or self-care (01) | DRG 291 ==
LOC: ER 11:15 → 2 NORTH 12:30 → ER 13:40
PROVIDERS: ADMIT Internal Medicine; ATTEND Internal Medicine
DX: I11.0 Hypertensive heart disease with heart failure (principal); I50.31 Acute diastolic (congestive) heart failure; I47.1 Supraventricular tachycardia; I48.92 Unspecified atrial flutter; I49.9 Cardiac arrhythmia, unspecified; D64.9 Anemia, unspecified; E03.9 Hypothyroidism, unspecified; E66.9 Obesity, unspecified; E78.00 Pure hypercholesterolemia, unspecified; E87.6 Hypokalemia; F41.9 Anxiety disorder, unspecified; I48.91 Unspecified atrial fibrillation; Z68.38 Body mass index [BMI] 38.0-38.9, adult; Z82.49 Family history of ischemic heart disease and other diseases of the circulatory system; Z83.3 Family history of diabetes mellitus; M10.9 Gout, unspecified; M19.90 Unspecified osteoarthritis, unspecified site
CPT/HCPCS: 36415; 71045; 80053; 82550; 83036; 83690; 83735; 83880; 84443; 84484; 85025; 85610; 93005; 94640; 94760; J0153; J3010; J3490; J7030; J7620; G0378

== ENCOUNTER → 2019-02-22 | Outpatient (CLI) | payer BC, OTHER ==
[2018-12-19 17:34] VITALS: BP 173/99
[~2019-02-22] MED LIST changes: +APIX5TAB PO; +GUAI5SYR PO; +LOSA-73 PO; +SOTA80TA48 PO
--- NOTE | 2019-02-22 11:54 | RAD ---
MR#: [id number] Date of Study: 02/22/2019 Ordering Physician: SATHISH SUTHERLAND, Referring Physician: ANNABELLE HERRERA Tech: RT Abrahan (R) (N) APPROVED REPORT Test Type: Exercise Stress Nurse/Tech: Josie Otero RN Test Indications: A fib Cardiac History: HTN Medications: See Electronic Medical Record Medical History: See Electronic Medical Record Resting ECG: SR Resting Heart Rate: 86 bpm Resting Blood Pressure: 192/96mmHg Pretest Chest Pain: None Nurse/Tech Notes Lungs CTA, S1S2 Consent: The procedure was explained to the patient in lay terms. Informed consent was witnessed. Bonifacio eout was entered into [employer]. History and Stress Test performed by ELISABETH Gabriel, MICHAEL (R) (N) Stress Symptoms Pt SOA immediatly. Denies chest pain. Pt excersise duration 3:22. Pt stated she will take home meds a t this time. Blood pressure 170/87 at termination of exam. POST EXERCISE Reason for Termination: Reached target heart rate Target HR: 135 Max HR: 137 bpm Exercise duration: 3:22 min:sec, 1 Stage Max Blood Pressure: 216/102mmHg Blood Pressure response to exercise: Normal blood pressure response during stress. Heart Rate response to exercise: normal response Chest Pain: No. Arrhythmia: No. ST Change: No. INTERPRETATION Stress EKG Conclusion: No evidence of stress induced EKG changes. Imaging Protocol IMAGE PROTOCOL: Rest Tc-99m/stress Tc-99m 1 day Rest: Stress: Viability: Radiopharm.Tc99m [id number] Sestamibi [id number] 33mCi Duration 15min. 10min. Img Date 02/22/2019 02/22/2019 Inj-Img [id number]. 60min. Rest Admin Site:IV - Right AntecubitalAdministrator:RT Abrahan (R)(N) Stress Admin Site: IV - Right AntecubitalAdministrator: ELISABETH Gabriel, MELISSAT (R)(N) STRESS DATA End Diast. Vol.107.0mlAv. Heart Rate93.0bpm End Syst. Vol.16.0mlCO Index BSA0.0L/min Myocardial Tpeg303.0gEject. Ibrarybi41.0% Stress Rates Pk. Fill Rate4.30EDV/secLVtime Pk. Fill 183.40msec Pk. Empty Rate4.52ESV/secLVtime Pk. Eject75.17msec 1/3 Pk. Fill0.55EDV/sec Stress Scores Regional WT0.00Summed WT1.00 Regional WM0.00Summed WM0.00 The rest and stress images show normal perfusion, normal contraction and thickening. LV Perf. Quant 17 Seg. SSS0.00 17 Seg. SRS0.00 17 Seg. SDS0.00 Stress Defect Extent (% LAD)0.00Rest Defect Extent (% LAD)0.00Rev. Defect Extent (% LAD)0.00 Stress Defect Extent (% LCX) 0.00Rest Defect Extent (% LCX)0.00Rev. Defect Extent (% LCX)0.00 Stress Defect Extent (% RCA)0.00Rest Defect Extent (% RCA)0.00Rev. Defect Extent (% RCA)0.00 Stress Defect Extent (% LILIA)0.00Rest Defect Extent (% LILIA)0.00Rev. Defect Extent (% LILIA)0.00 Other Information Quality:Average Risk Assessment: Low Risk Conclusion 1. No evidence of EKG changes with stress testing. Below average exercise capacity. 2. Normal perfusion at stress/rest. 3. Low risk study. 4. EF > 60%. Signed by : Sathish Sutherland, Electronically Approved : 02/22/2019 11:53:59
== END | disposition home or self-care (01) ==
LOC: NM 08:43
PROVIDERS: ATTEND Internal Medicine Cardiovascular Disease
DX: I21.4 Non-ST elevation (NSTEMI) myocardial infarction (principal); I48.91 Unspecified atrial fibrillation; I10 Essential (primary) hypertension
CPT/HCPCS: 78452; 93017; A9500

== ENCOUNTER 2019-05-20 03:03 | Emergency (ER) | payer BC, OTHER ==
[2019-05-20 03:32] VITALS: BP 170/80
[2019-05-20] MEDS ORDERED: ALPR0.25 PO (03:51)
--- NOTE | 2019-05-20 03:51 | PHYS DOC ---
Past Medical History Past Medical History: A-Fib, Anxiety, High Cholesterol, Hypertension Additional Past Medical Histor: SVT Past Surgical History: , Other Additional Past Surgical Histo: "parotid gland removed" Alcohol Use: Rarely Drug Use: None Adult General Chief Complaint Chief Complaint: SHORTNESS OF BREATH HPI HPI Patient is a 64 year old female with history of hypertension, dyslipidemia, atrial fibrillation, anxiety who presents with complaint of shortness of breath and heart racing. Patient states she woke up at 2 AM to go to the bathroom and felt shortness of breath, dizziness lasts for a few minutes and resolved spontaneously. Patient denies chest pain, focal neuro deficit, nausea and vomiting, fever and chills, URI symptoms. Patient states she had history of atrial relation and is concern for possible atrial fibrillation. Patient states recently she has lots of stress and used to take anxiety medication but currently doesn't take any medication. She had heart rate of 80s at arrival to ER. Review of Systems Review of Systems Constitutional: Denies fever or chills [] Eyes: Denies change in visual acuity, redness, or eye pain [] HENT: Denies nasal congestion or sore throat [] Respiratory: Denies cough, reports shortness of breath [] Cardiovascular: No additional information not addressed in HPI [] GI: Denies abdominal pain, nausea, vomiting, bloody stools or diarrhea [] : Denies dysuria or hematuria [] Musculoskeletal: Denies back pain or joint pain [] Integument: Denies rash or skin lesions [] Neurologic: Denies headache, focal weakness or sensory changes [] Endocrine: Denies polyuria or polydipsia [] All other systems were reviewed and found to be within normal limits, except as documented in this note. Current Medications Current Medications Current Medications Medications (Trade) Dose Ordered Sig/Yen Start Time Stop Time Status Last Admin Dose Admin Alprazolam (Xanax) 1 mg 1X ONCE 05/20/19 04:00 05/20/19 04:01 DC 05/20/19 03:33 1 MG Allergies Allergies Allergies Coded Allergies Type Severity Reaction Last Updated Verified No Known Drug Allergies 07/20/13 No Physical Exam Physical Exam Constitutional: Well developed, well nourished, mild distress, non-toxic appearance. [] HENT: Normocephalic, atraumatic. Eyes: PERRLA, EOMI, conjunctiva normal, no discharge. [] Neck: Normal range of motion, no tenderness, supple, no stridor. [] Cardiovascular:Heart rate regular rhythm, no murmur [] Lungs & Thorax: Bilateral breath sounds clear to auscultation [] Abdomen: Bowel sounds normal, soft, no tenderness, no masses, no pulsatile masses. [] Skin: Warm, dry, no erythema, no rash. [] Back: No tenderness, no CVA tenderness. [] Extremities: No tenderness, no cyanosis, no clubbing, ROM intact, no edema. [] Neurologic: Alert and oriented X 3, no focal deficits noted. [] Psychologic: Affect anxious, judgement normal, mood normal. [] Current Patient Data Vital Signs Vital Signs Date Time Temp Pulse Resp B/P (MAP) Pulse Ox O2 Delivery O2 Flow Rate FiO2 05/20/19 03:32 76 170/80 (110) 99 Room Air 05/20/19 03:06 97.6 20 97.6 EKG EKG EKG interpreted by me. EKG at 0216 showed sinus rhythm at rate of 80 with multiple artifact, left atrial abnormality, poor R-wave progress in anteroseptal leads, no acute ST-T wave elevation. Radiology/Procedures Radiology/Procedures [] Course & Med Decision Making Course & Med Decision Making Evaluation of patient in ER showed 65-year-old female patient with complaining of shortness of breath and palpitation that lasts for a few minutes and resolved at arrival to ER. Patient had history of atrial fibrillation but had sinus rhythm in ER. Blood pressure was 215/97 at arrival to ER that gradually decreased to 170/80 after taking Xanax. Patient was advised to continue her home medication and follow up with her primary care physician for treatment of anxiety. Prescription for 0.25 mg of Xanax # 10 was given.discharge: I've spoken with the patient and/or caregivers. I've explained the patient's condition, diagnosis and treatment plan based on information available to me at this time. I've answered the patient's and/or caregivers questions and addressed any concerns. The patient and/or caregivers have a good understanding the patient's diagnosis, condition and treatment plan as can be expected at this point. Vital signs have been stabilized. The patient's condition is stable for discharge from the emergency department. The patient will pursue further outpatient evaluation with her primary care provider or other designated consulting physician as outlined in the discharge instructions. Patient and/or caregivers are agreeable to this plan of care and follow-up instructions have been explained in detail. The patient and/or caregivers have received these instructions in written format and expressed understanding of these discharge instructions. The patient and her caregivers are aware that if any significant change in condition or worsening of symptoms should prompt him to immediately return to this of the closest emergency department. If an emergent department is not readily available I would encourage him to call 911. Dragon Disclaimer Dragon Disclaimer This electronic medical record was generated, in whole or in part, using a voice recognition dictation system. Departure Departure Impression: Primary Impression: Panic attack Additional Impression: Hypertension, accelerated Disposition: HOME, SELF-CARE (at 0350) Condition: IMPROVED Referrals: THO JENSEN MD (PCP) Patient Instructions: Atrial Fibrillation, Managing Your High Blood Pressure Additional Instructions: Continue current medication Follow-up with your primary care physician in 3-5 days Return to ER if not getting better Thank you for visiting [facility]. We appreciate you trusting us with your care. If any additional problems come up don't hesitate to return to visit us. Please follow up with your primary care provider so they can plan additional care if needed and know about the problem that you had. If symptoms worsen come back to the Emergency Department. Any concerning symptoms that start such as chest pain, shortness of air, weakness or numbness on one side of the body, running high fevers or any other concerning symptoms return to the ER. Scripts Alprazolam (XANAX) 0.25 Mg Tablet 0.25 MG PO PRN Q6HRS PRN for ANXIETY / AGITATION, #10 TAB 0 Refills Prov: ALDO BEAUCHAMP MD 05/20/19 Problem Qualifiers ALDO BEAUCHAMP MD May 20, 2019 03:51
[2019-05-20] MEDS ORDERED: ALPRAZolam 0.5 MG TABLET PO ONE (04:00)
--- NOTE | 2019-05-20 09:12 | EKG ---
[facility] [address] [place] [address] Test Date: 2019-05-20 Test Time: 03:16:36 Pat Name: RAMAKRISHNA PERDOMO Department: Room: Gender: F Program Host: : 1955 Requested By: ALDO BEAUCHAMP Order Number: [id number] Reading MD: Measurements Intervals [place] Rate: 80 P: -153 OR: 156 QRS: 16 QRSD: 80 T: 137 QT: 456 QTc: 530 Interpretive Statements SUPRAVENTRICULAR RHYTHM LEFT ATRIAL ABNORMALITY ST & T ABNORMALITY, CONSIDER HIGH LATERAL ISCHEMIA OR LEFT VENTRICULAR STRAIN INFERIOR ISCHEMIA OR LEFT VENTRICULAR STRAIN T ABNORMALITY IN ANTEROSEPTAL LEADS ABNORMAL ECG RI6.01 No previous ECG available for comparison
== END 2019-05-20 04:04 | disposition home or self-care (01) ==
LOC: ER 03:03
DX: F41.0 Panic disorder [episodic paroxysmal anxiety] (principal); I10 Essential (primary) hypertension; I48.91 Unspecified atrial fibrillation; E78.00 Pure hypercholesterolemia, unspecified
CPT/HCPCS: 93005; 99284-25

== ENCOUNTER 2019-07-21 22:16 | Emergency (ER) | payer BC, OTHER ==
[~2019-07-21] VITALS: Ht 162.6 cm; Wt 99.0 kg
[~2019-07-21 22:16] MED LIST changes: +ALPR0.25 PO
[2019-07-21] MEDS ORDERED: AMOX1TAB61 PO (22:47)
--- NOTE | 2019-07-21 22:47 | PHYS DOC ---
Past Medical History Past Medical History: A-Fib, Anxiety, High Cholesterol, Hypertension Additional Past Medical Histor: SVT (HUMAIRA LEROY APRN) Past Surgical History: , Other Additional Past Surgical Histo: "parotid gland removed" (HUMAIRA LEROY APRN) Smoking Status: Never Smoker Alcohol Use: Rarely Drug Use: None (HUMAIRA LEROY APRN) Attending Signature I have participated in the care of this patient and I have reviewed and agree with all pertinent clinical information above including history, exam, and recommendations. (QUITA MCKNIGHT MD) Adult General Chief Complaint Chief Complaint: OTHER COMPLAINTS HPI HPI Patient is a 64 year old female who presents with left upper dental pain that started on . Patient that she had an abscess that time it popped. The patient states she has had increased pain since that time. She rates her pain a 7 out of 10 in severity and sharp. The patient has not seen a dentist of this time. Denies any other symptoms. Complete ROS were reviewed and found to be within normal limits, except as documented in the HPI (HUMAIRA LEROY APRN) Current Medications Current Medications Current Medications Medications (Trade) Dose Ordered Sig/Yen Start Time Stop Time Status Last Admin Dose Admin Al Hydroxide/Mg Hydroxide (Mylanta Plus Xs) 30 ml 1X ONCE 07/21/19 22:45 07/21/19 22:46 DC 07/21/19 23:01 30 ML Lidocaine HCl (Viscous Lidocaine) 15 ml 1X ONCE 07/21/19 22:45 07/21/19 22:46 DC 07/21/19 23:01 15 ML (QUITA MCKNIGHT MD) Allergies Allergies Allergies Coded Allergies Type Severity Reaction Last Updated Verified No Known Drug Allergies 07/20/13 No (QUITA MCKNIGHT MD) Physical Exam Physical Exam Constitutional: Well developed, well nourished, no acute distress, non-toxic appearance. [] HENT: Normocephalic, atraumatic, bilateral external ears normal, oropharynx moist, no oral exudates, nose normal. Edematous gums with cracked tooth 18. Neurologic: Alert and oriented X 3, normal motor function, normal sensory function, no focal deficits noted. [] Psychologic: Affect normal, judgement normal, mood normal. [] (HUMAIRA LEROY APRN) Current Patient Data Vital Signs Vital Signs Date Time Temp Pulse Resp B/P (MAP) Pulse Ox O2 Delivery O2 Flow Rate FiO2 07/21/19 23:08 98.0 86 20 166/86 (112) 97 Room Air 98.0 (QUITA MCKNIGHT MD) EKG EKG [] (HUMAIRA LEROY APRN) Radiology/Procedures Radiology/Procedures [] (HUMAIRA LEROY APRN) Course & Med Decision Making Course & Med Decision Making Pertinent Labs and Imaging studies reviewed. (See chart for details) We will give dental balls in the ER, and then will send home with a prescription for Augmentin. Discussed with the patient that this really needs to be seen by dentist as she needs the tooth taken care of. (HUMAIRA LEROY APRN) Dragon Disclaimer Dragon Disclaimer This electronic medical record was generated, in whole or in part, using a voice recognition dictation system. (HUMAIRA LEROY APRN) Departure Departure Impression: Primary Impression: Dentalgia Disposition: HOME, SELF-CARE Condition: STABLE Referrals: THO JENSEN MD (PCP) Patient Instructions: Carbamide Peroxide dental solution, Dental Abscess Additional Instructions: Thank you for visiting [facility]. We appreciate you trusting us with your care. If any additional problems come up don't hesitate to return to visit us. Please follow up with your primary care provider so they can plan additional care if needed and know about the problem that you had. If symptoms worsen come back to the Emergency Department. Any concerning symptoms that start such as chest pain, shortness of air, weakness or numbness on one side of the body, running high fevers or any other concerning symptoms return to the ER. You have been prescribed an antibiotic today to help fight your infection. Please take all of the antibiotic as directed. If after 48 hours the infection is not improving, please return for more care. If the infection worsens, return to ER for additional care. Scripts Amoxicillin/Potassium Clav (AUGMENTIN 875-125 TABLET) 1 Each Tablet 1 TAB PO BID for 10 Days, #20 TAB 0 Refills Prov: HUMAIRA LEROY APRN 07/21/19 HUMAIRA LEROY APRN Jul 21, 2019 22:47 QUITA MCKNIGHT MD Jul 22, 2019 01:32
[2019-07-21] MEDS: LIDOCAINE 2% VISCOUS 15 ML SOLUTION. SWSW ONE (23:01)
[2019-07-21] MEDS: MAG HYDROX/ALUMINUM HYD/SIMETH 30 ML ORAL.SUSP PO ONE (23:01)
[2019-07-21 23:08] VITALS: BP 166/86
== END 2019-07-21 23:08 | disposition home or self-care (01) ==
LOC: ER 22:16
DX: K08.89 Other specified disorders of teeth and supporting structures (principal); I10 Essential (primary) hypertension; E78.00 Pure hypercholesterolemia, unspecified; I48.91 Unspecified atrial fibrillation
CPT/HCPCS: 99284

== ENCOUNTER 2020-08-21 22:39 | Emergency (ER) | payer BC, OTHER ==
[~2020-08-21] VITALS: Ht 162.6 cm; Wt 97.7 kg
[~2020-08-21 22:39] MED LIST changes: +AMLO-187 PO; -AMLO10TA8 PO; +AMOX1TAB61 PO; -LEVO75TA PO; +LEVO75TA90 PO
[2020-08-21 22:40] VITALS: BP 157/92
--- NOTE | 2020-08-22 00:04 | PHYS DOC ---
Past Medical History Past Medical History: A-Fib, Anxiety, Hypertension Additional Past Medical Histor: SVT Past Surgical History: No Surgical History Additional Past Surgical Histo: "parotid gland removed" Smoking Status: Never Smoker Alcohol Use: Occasionally Drug Use: None General Adult EDM: Chief Complaint: ANXIETY/PANIC ATTACK HPI: HPI: Patient is a 65 year old female who presents to the emergency department after having a panic attack. Patient states that she has a history of panic attacks and is in therapy currently for them. Patient does not take medication for her anxiety and this evening she felt overwhelmed due to several factors at home. Patient does not have any SI or HI and is feeling better currently. She states that she felt very weak before coming into the hospital and that worried her which added to her anxiety but is feeling better now. Review of Systems: Review of Systems: Review of systems: Constitutional symptoms- No fever, no chills. Eyes- No Discharge, No Visual Loss Respiratory symptoms- No shortness of breath, No wheezing, No Dyspnea on Exertion Cardiovascular Systems; No chest pain, No Palpitations, No syncope Gastrointestinal symptoms: NO abdominal pain, no nausea, no vomiting or diarrhea. Genitourinary symptoms: No dysuria. Musculoskeletal symptoms: No back pain No extremity pain. NEUROLOGICAL Symptoms: No headache, positive generalized weakness; No focal Weakness Heart Score: C/O Chest Pain: N/A Risk Factors: Risk Factors: DM, Current or recent (<one month) smoker, HTN, HLP, family history of CAD, obesity. Risk Scores: Score 0 - 3: 2.5% MACE over next 6 weeks - Discharge Home Score 4 - 6: 20.3% MACE over next 6 weeks - Admit for Clinical Observation Score 7 - 10: 72.7% MACE over next 6 weeks - Early Invasive Strategies Allergies: Allergies: Allergies Coded Allergies Type Severity Reaction Last Updated Verified No Known Drug Allergies 07/20/13 No Physical Exam: PE: General: alert, no acute distress. Skin: warm, dry and intact. Head:: Normocephalic, atraumatic. Neck: Trachea midline. Eyes: EOMI, Normal conjunctiva, No drainage CARDIOVASCULAR: Regular rate and rhythm RESPIRATORY: No respiratory distress Back: Full range of motion. MUSCULOSKELETAL: Full range of motion of bilateral upper and lower extremities. GASTROINTESTINAL: Abdomen soft without rebound or guarding. NEUROLOGICAL: Alert and noted to person, place and time. No neurological deficits observed Psychiatric: Cooperative. Normal judgment, emotional and anxious. Current Patient Data: Vital Signs: Vital Signs Date Time Temp Pulse Resp B/P (MAP) Pulse Ox O2 Delivery O2 Flow Rate FiO2 08/21/20 22:40 98.0 86 18 157/92 (113) 95 98.0 EKG: EKG: [] Radiology/Procedures: Radiology/Procedures: [] Course & Med Decision Making: Course & Med Decision Making Pertinent Labs and Imaging studies reviewed. (See chart for details) []Patient evaluated. Patient states she feels better. She denies HI or SI. Patient states she can see her therapist tomorrow. Patient and ok with DC planning. Dragon Disclaimer: Dragon Disclaimer: This electronic medical record was generated, in whole or in part, using a voice recognition dictation system. Departure Departure Impression: Primary Impression: Anxiety Disposition: 01 HOME / SELF CARE / HOMELESS Condition: STABLE Referrals: THO JENSEN MD (PCP) Patient Instructions: Anxiety and Panic Attacks EDUARDO HERRERA DO Aug 22, 2020 00:04
== END 2020-08-22 00:47 | disposition home or self-care (01) ==
LOC: ER 22:39
DX: F41.9 Anxiety disorder, unspecified (principal); I48.20 Chronic atrial fibrillation, unspecified; I10 Essential (primary) hypertension; Z98.890 Other specified postprocedural states
CPT/HCPCS: 99283

== ENCOUNTER → 2021-01-02 | Outpatient (CLI) | payer BC, OTHER ==
[2021-01-02 14:25] LABS: BASO # 0.1 x10^3/uL (0.0-0.2); BASO % 1 % (0-3); EOS # 0.1 x10^3/uL (0.0-0.7); EOS % 2 % (0-3); HEMATOCRIT 33.1 % (36.0-47.0); HEMOGLOBIN 11.1 g/dL (12.0-15.5); LYMPH # 0.7 x10^3/uL (1.0-4.8); LYMPH % 15 % (24-48); MEAN CORPUSCULAR HEMOGLOBIN 28 pg (25-35); MEAN CORPUSCULAR HGB CONC 33 g/dL (31-37); MEAN CORPUSCULAR VOLUME 84 fL (79-100); MONO # 0.6 x10^3/uL (0.0-1.1); MONO % 13 % (0-9); NEUT # 3.4 x10^3/uL (1.8-7.7); NEUT % 69 % (31-73); PLATELET COUNT 350 x10^3/uL (140-400); RED BLOOD COUNT 3.93 x10^6/uL (3.50-5.40); RED CELL DISTRIBUTION WIDTH 17.4 % (11.5-14.5)
[2021-01-02 14:50] LABS: ALBUMIN 3.5 g/dL (3.4-5.0); ALBUMIN/GLOBULIN RATIO 0.9 (1.0-1.7); ALK PHOS 94 U/L (46-116); ALT (SGPT) 31 U/L (14-59); ANION GAP 7 (6-14); BLOOD UREA NITROGEN 24 mg/dL (7-20); BUN/CREATININE RATIO 14 (6-20); CARBON DIOXIDE 29 mmol/L (21-32); CHLORIDE 105 mmol/L (98-107); CREATININE 1.7 mg/dL (0.6-1.0); GFR 36.7; GLUCOSE 95 mg/dL (70-99); SODIUM 141 mmol/L (136-145); TOTAL BILIRUBIN 0.6 mg/dL (0.2-1.0); TOTAL PROTEIN 7.6 g/dL (6.4-8.2)
[2021-01-02 14:52] LABS: AST (SGOT) < 5 U/L (15-37)
== END ==
LOC: LAB 14:11
PROVIDERS: ATTEND Internal Medicine Cardiovascular Disease
DX: I10 Essential (primary) hypertension (principal)
CPT/HCPCS: 36415; 80053; 84443; 85025

== ENCOUNTER → 2021-01-23 | Outpatient (CLI) | payer BC, OTHER ==
--- NOTE | 2021-01-23 11:23 | CARD ---
MR#: [id number] Date of Study: 01/23/2021 Ordering Physician: SATHISH TITUS, Referring Physician: SATHISH TITUS, Tech: Deann Cottrell [facility] APPROVED REPORT EXAM: Two-dimensional and M-mode echocardiogram with Doppler and color Doppler. Other Information Quality : GoodHR: 76bpm Rhythm : NSR INDICATION Dyspnea RISK FACTORS Hypertension Obesity 2D DIMENSIONS RVDd3.6 (2.9-3.5cm)Left Atrium(2D)4.5 (1.6-4.0cm) IVSd1.2 (0.7-1.1cm)Aortic Root(2D)2.9 (2.0-3.7cm) LVDd4.2 (3.9-5.9cm)LVOT Diameter2.2 (1.8-2.4cm) PWd1.2 (0.7-1.1cm)LVDs2.7 (2.5-4.0cm) FS (%) 34.0 %SV48.6 ml LVEF(%)63.4 (>50%) Aortic Valve AoV Peak True.187.2cm/sAoV VTI40.0cm AO Peak GR.14.0mmHgLVOT Peak True.130.8cm/s AO Mean GR.6mmHgAVA (VMAX)2.73cm2 AI P 1/2 Hetd382vw Mitral Valve MV E Javkbtja92.4cm/sMV DECEL [id number] MV A Fnszogrk446.4cm/sE/A Ratio0.7 Pulmonary Valve PV Peak Pwpcwhvw67.5cm/s Tricuspid Valve TR P. Pwxivaim465um/sTR Peak Gr.31mmHg LEFT VENTRICLE The left ventricle is normal size. There is mild concentric left ventricular hypertrophy. The left ve ntricular systolic function is normal. Estimated ejection fraction 60-65%.. There is normal LV segme ntal wall motion. Transmitral Doppler flow pattern is Grade I-abnormal relaxation pattern. RIGHT VENTRICLE The right ventricle is normal size. There is normal right ventricular wall thickness. The right ventr icular systolic function is normal. ATRIA The left atrium size is normal. The right atrium size is normal. The interatrial septum is intact wit h no evidence for an atrial septal defect or patent foramen ovale as noted on 2-D or Doppler imaging. AORTIC VALVE The aortic valve is normal in structure and function. Doppler and Color Flow revealed moderate aortic regurgitation. There is no significant aortic valvular stenosis. MITRAL VALVE The mitral valve is normal in structure and function. There is no evidence of mitral valve prolapse. There is no mitral valve stenosis. Doppler and Color-flow revealed mild mitral regurgitation. TRICUSPID VALVE The tricuspid valve is normal in structure and function. Doppler and Color Flow revealed trace tricus pid regurgitation. Estimated PAP 35 mmHg. There is no tricuspid valve stenosis. PULMONIC VALVE The pulmonary valve is normal in structure and function. Doppler and Color Flow revealed no pulmonic valvular regurgitation. GREAT VESSELS The aortic root is normal in size. The ascending aorta is normal in size. The IVC is normal in size a nd collapses >50% with inspiration. PERICARDIAL EFFUSION There is no evidence of significant pericardial effusion. Critical Notification Critical Value: No <Conclusion> The left ventricular systolic function is normal. Estimated ejection fraction 60-65%.. There is normal LV segmental wall motion. Transmitral Doppler flow pattern is Grade I-abnormal relaxation pattern. Moderate aortic regurgitation. Mild mitral regurgitation. Trace tricuspid regurgitation. Estimated PAP 35 mmHg. There is no evidence of significant pericardial effusion. Signed by : Dany Enriquez, Electronically Approved : 01/23/2021 11:23:30
== END ==
LOC: ECHO 07:56
PROVIDERS: ATTEND Internal Medicine Cardiovascular Disease
DX: I08.0 Rheumatic disorders of both mitral and aortic valves (principal); I48.0 Paroxysmal atrial fibrillation
CPT/HCPCS: 93306

== ENCOUNTER 2021-02-23 23:52 | Emergency (ER) | payer BC, OTHER ==
[~2021-02-23] VITALS: Ht 162.6 cm; Wt 95.0 kg
[2021-02-24 03:36] LABS: BILIRUBIN,URINE NEGATIVE (NEG); CLARITY,URINE CLEAR; COLOR,URINE YELLOW; NITRITE,URINE NEGATIVE (NEG); PH,URINE 5.5 (<5.0-8.0); PROTEIN,URINE NEGATIVE (NEG-TRACE); UROBILINOGEN,URINE 0.2 mg/dL (0.2 mg/dL)
[2021-02-24 03:42] LABS: AMPHETAMINE/METHAMPHETAMINE NEG (NEG); BARBITURATES NEG (NEG); BENZODIAZEPINES NEG (NEG); CANNABINOIDS NEG (NEG); COCAINE NEG (NEG); METHADONE NEG (NEG); OPIATES NEG (NEG); PHENCYCLIDINE NEG (NEG)
[2021-02-24 03:51] LABS: BACTERIA,URINE MODERATE /HPF (0-FEW); RBC,URINE 0 /HPF (0-2)
[2021-02-24 03:58] LABS: BASO # 0.1 x10^3/uL (0.0-0.2); BASO % 1 % (0-3); EOS # 0.2 x10^3/uL (0.0-0.7); EOS % 3 % (0-3); HEMOGLOBIN 11.9 g/dL (12.0-15.5); LYMPH # 0.6 x10^3/uL (1.0-4.8); LYMPH % 12 % (24-48); MEAN CORPUSCULAR HEMOGLOBIN 28 pg (25-35); MEAN CORPUSCULAR HGB CONC 34 g/dL (31-37); MEAN CORPUSCULAR VOLUME 82 fL (79-100); MONO # 0.6 x10^3/uL (0.0-1.1); MONO % 11 % (0-9); NEUT # 3.9 x10^3/uL (1.8-7.7); NEUT % 74 % (31-73); PLATELET COUNT 317 x10^3/uL (140-400); RED BLOOD COUNT 4.27 x10^6/uL (3.50-5.40); RED CELL DISTRIBUTION WIDTH 17.5 % (11.5-14.5); WHITE BLOOD COUNT 5.3 x10^3/uL (4.0-11.0)
[2021-02-24 04:09] LABS: CALCIUM 9.1 mg/dL (8.5-10.1); CREATININE 1.2 mg/dL (0.6-1.0); GFR 54.9; POTASSIUM 3.2 mmol/L (3.5-5.1)
[2021-02-24 04:16] LABS: ALBUMIN 3.6 g/dL (3.4-5.0); ALBUMIN/GLOBULIN RATIO 0.8 (1.0-1.7); TOTAL BILIRUBIN 0.7 mg/dL (0.2-1.0); TOTAL PROTEIN 8.2 g/dL (6.4-8.2)
--- NOTE | 2021-02-24 04:16 | RAD ---
CT HEAD INDICATION: Reason: confusion / Spl. Instructions: / History: COMPARISON: None Available. Exposure: One or more of the following individualized dose reduction techniques were utilized for thi s examination: 1. Automated exposure control 2. Adjustment of the mA and/or kV according to patient size 3. Use of iterative reconstruction technique TECHNIQUE: 5 mm contiguous axial images were obtained from the skull base to the vertex in both bone and soft tissue algorithm. FINDINGS: No abnormal attenuation within the brain parenchyma. No evidence of acute intracranial hemorrhage. No extra-axial fluid collections. No mass effect or midline shift. Ventricular size is appropriate. Basal cisterns are patent. No fractures identified.Cheatham-white differentiation is preserved.Globes and orbits are within normal l imits. Paranasal sinuses and mastoid air cells are clear. IMPRESSION: Unremarkable CT examination of the head without contrast, as above. Specifically, no evidence of an acute intracranial abnormality. Electronically signed by: Nikhil Maciel MD (02/24/2021 4:14 AM) [id number]
--- NOTE | 2021-02-24 04:27 | EKG ---
[facility] [address] [place] [address] Test Date: 2021-02-24 Test Time: 03:18:33 Pat Name: RAMAKRISHNA PERDOMO Department: Room: Gender: F [place] Nurse: : 1955 Requested By: LUIS M FLOYD Order Number: [id number] Reading MD: Dany Enriquez Measurements Intervals [place] Rate: 92 P: 39 RI: 146 QRS: 42 QRSD: 88 T: 49 QT: 394 QTc: 493 Interpretive Statements SINUS RHYTHM PROLONGED QT Electronically Signed On 02-25-2021 16:02:24 CDT by Dany Enriquez
--- NOTE | 2021-02-24 04:37 | RAD ---
EXAM: CHEST 1 VIEW History: Confusion COMPARISON: 12/17/2018. TECHNIQUE: Single portable radiograph of the chest FINDINGS: Mild cardiomegaly. The lungs are clear bilaterally. The costophrenic sulci are clear and w ell demarcated. IMPRESSION: Mild cardiomegaly. Electronically signed by: Nikhil Maciel MD (02/24/2021 4:35 AM) [id number]
[2021-02-24 04:45] VITALS: BP 168/72
[2021-02-24] MEDS ORDERED: NITR100C62 PO (05:11)
--- NOTE | 2021-02-24 05:12 | PHYS DOC ---
Past Medical History Past Medical History: A-Fib, Anxiety, Hypertension Additional Past Medical Histor: SVT Past Surgical History: Other Additional Past Surgical Histo: "parotid gland removed" Smoking Status: Never Smoker Alcohol Use: Rarely Drug Use: None General Adult EDM: Chief Complaint: ANXIETY/PANIC ATTACK HPI: HPI: 65-year-old female past medical history of A. fib, no longer on anticoagulation, SVT, hypothyroidism, hypertension and history of anxiety, presents the ED with complaints of " I have not slept in so long, I fell asleep today while talking to my daughter." Patient states shortly after talking to her daughter she was lying in her bed and felt as if she could not move but states she was able to move all four limbs but felt very weak. States she may have been partially asleep and started panicking, describes her heart was racing, she felt nervous and scared. States she was freaking out that she could be having a stroke or he art attack. Symptoms of been able to move lasted for less than 30 seconds. Called her son who is present in the emergency department, (patient consents to his/her/their knowledge and involvement in pts' medical care), who states patient speech was normal with no aphasia. Patient reports she works full-time and rarely sleeps more than a few hours every night due to having a mother with dementia and providing care for her. Denies any alcohol or drug use. Patient with no associated blurry vision, sensory deficits, chest pain, dyspnea, diaphoresis or syncope. Denies any history of blunt head trauma. Review of Systems: Review of Systems: Constitutional: Denies fever or chills. [] Eyes: Denies change in visual acuity. [] HENT: Denies nasal congestion or sore throat. [] Respiratory: Denies cough or shortness of breath. [] Cardiovascular: Denies chest pain or edema. [] GI: Denies abdominal pain, nausea, vomiting, bloody stools or diarrhea. [] : Denies dysuria or hematuria Musculoskeletal: Denies back pain or joint pain. [] Integument: Denies rash or diaphoresis Neurologic: Denies headache or neck stiffness Endocrine: Denies polyuria or polydipsia. [] Lymphatic: Denies swollen glands. [] Psychiatric: Denies depression or anxiety. [] Heart Score: C/O Chest Pain: No Risk Factors: Risk Factors: DM, Current or recent (<one month) smoker, HTN, HLP, family history of CAD, obesity. Risk Scores: Score 0 - 3: 2.5% MACE over next 6 weeks - Discharge Home Score 4 - 6: 20.3% MACE over next 6 weeks - Admit for Clinical Observation Score 7 - 10: 72.7% MACE over next 6 weeks - Early Invasive Strategies Allergies: Allergies: Allergies Coded Allergies Type Severity Reaction Last Updated Verified No Known Drug Allergies 07/20/13 No Physical Exam: PE: Constitutional: Well developed, well nourished, no acute distress, non-toxic appearance. HENT: Normocephalic, atraumatic, Eyes: PERRLA, EOMI, conjunctiva normal, no discharge. Neck: Normal range of motion, supple, Cardiovascular: S1/2 present, regular rhythm Lungs & Thorax: Speaking in full sentences, bilateral equal chest rise, no tachypnea or increased work of breathing Abdomen: soft, no tenderness, Skin: Warm, dry, no erythema, no rash. [] Extremities: No tenderness, no cyanosis, no lower extremity edema Neurologic: CN2-12 intact, Alert and oriented X 3, normal motor function, normal sensory function, no focal deficits noted. [] Psychologic: Affect normal, judgement normal, mood normal. [] Current Patient Data: Labs: Laboratory Tests Test 02/24/21 02:09 02/24/21 03:50 Urine Collection Type Void Urine Color Yellow Urine Clarity Clear Urine pH 5.5 (<5.0-8.0) Urine Specific [place] 1.015 (1.000-1.030) Urine Protein Negative mg/dL (NEG-TRACE) Urine Glucose (UA) Negative mg/dL (NEG) Urine Ketones (Stick) Negative mg/dL (NEG) Urine Blood Negative (NEG) Urine Nitrite Negative (NEG) Urine Bilirubin Negative (NEG) Urine Urobilinogen Dipstick 0.2 mg/dL (0.2 mg/dL) Urine Leukocyte Esterase Small (NEG) Urine RBC 0 /HPF (0-2) Urine WBC 5-10 /HPF (0-4) Urine Squamous Epithelial Cells Many /LPF Urine Bacteria Moderate /HPF (0-FEW) Urine Mucus Slight /LPF Urine Opiates Screen Neg (NEG) Urine Methadone Screen Neg (NEG) Urine Barbiturates Neg (NEG) Urine Phencyclidine Screen Neg (NEG) Urine Amphetamine/Methamphetamine Neg (NEG) Urine Benzodiazepines Screen Neg (NEG) Urine Cocaine Screen Neg (NEG) Urine Cannabinoids Screen Neg (NEG) Urine Ethyl Alcohol Neg (NEG) White Blood Count 5.3 x10^3/uL (4.0-11.0) Red Blood Count 4.27 x10^6/uL (3.50-5.40) Hemoglobin 11.9 g/dL (12.0-15.5) L Hematocrit 35.0 % (36.0-47.0) L Mean Corpuscular Volume 82 fL (79-100) Mean Corpuscular Hemoglobin 28 pg (25-35) Mean Corpuscular Hemoglobin Concent 34 g/dL (31-37) Red Cell Distribution Width 17.5 % (11.5-14.5) H Platelet Count 317 x10^3/uL (140-400) Neutrophils (%) (Auto) 74 % (31-73) H Lymphocytes (%) (Auto) 12 % (24-48) L Monocytes (%) (Auto) 11 % (0-9) H Eosinophils (%) (Auto) 3 % (0-3) Basophils (%) (Auto) 1 % (0-3) Neutrophils # (Auto) 3.9 x10^3/uL (1.8-7.7) Lymphocytes # (Auto) 0.6 x10^3/uL (1.0-4.8) L Monocytes # (Auto) 0.6 x10^3/uL (0.0-1.1) Eosinophils # (Auto) 0.2 x10^3/uL (0.0-0.7) Basophils # (Auto) 0.1 x10^3/uL (0.0-0.2) Sodium Level 140 mmol/L (136-145) Potassium Level 3.2 mmol/L (3.5-5.1) L Chloride Level 103 mmol/L (98-107) Carbon Dioxide Level 28 mmol/L (21-32) Anion Gap 9 (6-14) Blood Urea Nitrogen 19 mg/dL (7-20) Creatinine 1.2 mg/dL (0.6-1.0) H Estimated GFR (Cockcroft-Gault) 54.9 BUN/Creatinine Ratio 16 (6-20) Glucose Level 114 mg/dL (70-99) H Calcium Level 9.1 mg/dL (8.5-10.1) Total Bilirubin 0.7 mg/dL (0.2-1.0) Aspartate Amino Transferase (AST) 11 U/L (15-37) L Alanine Aminotransferase (ALT) 21 U/L (14-59) Alkaline Phosphatase 93 U/L (46-116) Troponin I Quantitative < 0.017 ng/mL (0.000-0.055) Total Protein 8.2 g/dL (6.4-8.2) Albumin 3.6 g/dL (3.4-5.0) Albumin/Globulin Ratio 0.8 (1.0-1.7) L Laboratory Tests 02/24/21 03:50 Laboratory Tests 02/24/21 03:50 Vital Signs: Vital Signs Date Time Temp Pulse Resp B/P (MAP) Pulse Ox O2 Delivery O2 Flow Rate FiO2 02/24/21 02:35 97.7 85 16 167/82 (110) 100 Room Air 97.7 EKG: EKG: Sinus rhythm 92 bpm, no axis deviation, QTC 493, no T wave inversion, no ST elevation or ST depression, no active chest pain Radiology/Procedures: Radiology/Procedures: IMAGING REPORT Signed PATIENT: RAMAKRISHNA PERDOMO ACCOUNT: [id number] : 1955 LOCATION: ER AGE: 65 SEX: F EXAM STATUS: REG ER ORD. PHYSICIAN: LUIS M FLOYD DO REASON: confusion PROCEDURE: CT HEAD WO CONTRAST CT HEAD INDICATION: Reason: confusion / Spl. Instructions: / History: COMPARISON: None Available. Exposure: One or more of the following individualized dose reduction techniques were utilized for this examination: 1. Automated exposure control 2. Adjustment of the mA and/or kV according to patient size 3. Use of iterative reconstruction technique TECHNIQUE: 5 mm contiguous axial images were obtained from the skull base to the vertex in both bone and soft tissue algorithm. FINDINGS: No abnormal attenuation within the brain parenchyma. No evidence of acute intracranial hemorrhage. No extra-axial fluid collections . No mass effect or midline shift. Ventricular size is appropriate. Basal cisterns are patent. No fractures identified.Cheatham-white differentiation is preserved.Globes and orbits are within normal limits. Paranasal sinuses and mastoid air cells are clear. IMPRESSION: Unremarkable CT examination of the head without contrast, as above. Specifically, no evidence of an acute intracranial abnormality. Electronically signed by: Nikhil Maciel MD (02/24/2021 4:14 AM) [id number] DICTATED and SIGNED BY: NIKHIL MACIEL MD DATE: 02/24/21 [id number] IMAGING REPORT Signed PATIENT: RAMAKRISHNA PERDOMO ACCOUNT: [id number] : 1955 LOCATION: ER AGE: 65 SEX: F EXAM STATUS: REG ER ORD. PHYSICIAN: LUIS M FLOYD DO REASON: confusion PROCEDURE: CHEST AP ONLY EXAM: CHEST 1 VIEW History: Confusion COMPARISON: 12/17/2018. TECHNIQUE: Single portable radiograph of the chest FINDINGS: Mild cardiomegaly. The lungs are clear bilaterally. The costophrenic sulci are clear and well demarcated. IMPRESSION: Mild cardiomegaly. Electronically signed by: Nikhil Maciel MD (02/24/2021 4:35 AM) [id number] DICTATED and SIGNED BY: NIKHIL MACIEL MD DATE: 02/24/21 [id number] Course & Med Decision Making: Course & Med Decision Making Pertinent Labs and Imaging studies reviewed. (See chart for details) Concern for very brief episode of generalized weakness in the setting of chronic kidney disease and anxiety (suspect mild panic attack), symptoms were brief and resolved prior to ED arrival. Patient medically stable with no evidence of endorgan damage in the setting of hypertension. Patient neurologically intact with no focal deficits. NIHSS0. I suspect patient symptoms are more likely related to anxiety and sleep deprivation than cardiac or stroke process. Patient had no associated chest pain. EKG in sinus rhythm is not any anticoagulants. Urinalysis contaminated. Will prescribe macrobid. Will discharge home with strict ED return precautions were given for neurologic deficits, confusion, speech changes, aphasia, blurry vision or chest pain. Encouraged urgent outpatient follow-up with PMD for repeat evaluation. Life- threatening processes were considered but are low suspicion at this time, given history, physical exam and ED workup. Pt was educated on all prescription medications and adverse effects. All patient's questions were answered and pt was stable at time of discharge. Life/limb-threatening differential includes but is not limited to, end organ damage/sepsis, trauma/abuse/neglect, neurologic deficit, alcohol/drug ingestion, toxidrome, suicidal/homicidal ideations plans or attempts, psychosis or mental illness resulting in self neglect and inability to care for self. I have spoken with the patient and/or caregivers. I explained the patient's condition, diagnoses and treatment plan based on the information available to me at this time. I have answered the patient and/or caregiver's questions and addressed any concerns. The patient and/or caregivers have a good understanding of patient's diagnosis, condition and treatment plan as can be expected at this point. Vital signs have been stable. Patient's condition is stable and appropriate for discharge from the emergency department. Patient will pursue further outpatient evaluation with primary care physician or other designated or consulting physician as outlined in the discharge instructions. The patient and/or caregivers are agreeable to this plan of care and follow-up instructions have been explained in detail. The patient and/or caregivers have received these instructions in written form and have expressed an understanding of the discharge instructions. The patient and/or caregivers are aware that any significant change of condition or worsening of symptoms should prompt immediate return to this or the closest emergency department or call to 911. Geovanna Disclaimer: Geovanna Disclaimer: This electronic medical record was generated, in whole or in part, using a voice recognition dictation system. Departure Departure Impression: Primary Impression: Anxiety Additional Impressions: CKD (chronic kidney disease) Sleep deprivation Disposition: 01 HOME / SELF CARE / HOMELESS Condition: STABLE Referrals: THO JENSEN MD (PCP) Follow-up with your primary care physician in 24 to 48 hours OR FOLLOW UP WITH FAMILY MEDICINE: [address] [facility], [address] [place] [address] Patient Instructions: Anxiety and Panic Attacks, Urinary Tract Infection Additional Instructions: FOLLOW UP WITH NEUROLOGY: FOR DEFINITIVE MANAGEMENT of sleep deprivation, consider sleep apnea testing [facility] [address] [place], [address] [place] [address] EMERGENCY DEPARTMENT GENERAL DISCHARGE INSTRUCTIONS Thank you for coming to [facility] Emergency Department (ED) today and trusting us with you care. We trust that you had a positive experience in our Emergency Department. If you wish to speak to the department management, you may call the Director at [phone]. YOUR FOLLOW UP INSTRUCTIONS ARE FOLLOWS: 1. Do you have a private Doctor? If you do not have a private doctor, please ask for a resource list of physicians or clinics that may be able to assist you with follow up care. 2. The Emergency Physicain has interpreted your x-rays. The X-Ray specialist will also review them. If there is a change in the findings, you will be notified in 48 hours when at all possible. 3. A lab test or culture has been done, your results will be reviewed and you will be notified if you need a change in treatment. ADDITIONAL INSTRUCTIONS AND INFORMATION: 1. Your care today has been supervised by a physician who is specially trained in emergency care. Many problems require more than one evaluation for a complete diagnosis and treatment. We recommend that you schedule your follow up appointment as recommended to ensure complete treatment of you illness or injury. If you are unable to obtain follow up care and continue to have a problem, or if your condition worsens, we recommend that you return to the ED. 2. We are not able to safely determine your condition over the phone nor are we able to give sound medical advice over the phone. For these safety reasons, if you call for medical advice we will ask you to come to the ED for further evaluation. 3. If you have any questions regarding these discharge instructions please call the ED at [phone]. SAFETY INFORMATION: In the interest of safety, wellness, and injury prevention; we encourage you to wear your sealbelt, if you smoke; quite smoking, and we encourage family to use a protective helmet for bicycling and other sporting events that present an increased risk for head injury. IF YOUR SYMPTOMS WORSEN OR NEW SYMPTOMS DEVELOP, OR YOU HAVE CONCERNS ABOUT YOUR CONDITION; OR IF YOUR CONDITION WORSENS WHILE YOU ARE WAITING FOR YOUR FOLLOW UP APPOINTMENT; EITHER CONTACT YOUR PRIMARY CARE DOCTOR, THE PHYSICIAN WHOSE NAME AND NUMBER YOU WERE GIVEN, OR RETURN TO THE ED IMMEDIATELY. Scripts Nitrofurantoin Monohyd/M-Cryst (MACROBID [id number] MG CAPSULE) 100 Mg Capsule 1 CAP PO BID for 7 Days, #14 CAP 0 Refills Prov: LUIS M FLOYD DO 02/24/21 VOHSLUIS M DO Feb 24, 2021 05:12
== END 2021-02-24 05:51 | disposition home or self-care (01) ==
LOC: ER 23:52
DX: F41.9 Anxiety disorder, unspecified (principal); I12.9 Hypertensive chronic kidney disease with stage 1 through stage 4 chronic kidney disease, or unspecified chronic kidney disease; N18.9 Chronic kidney disease, unspecified; Z72.820 Sleep deprivation; I48.91 Unspecified atrial fibrillation; I10 Essential (primary) hypertension; E03.9 Hypothyroidism, unspecified
CPT/HCPCS: 36415; 70450; 71045; 80053; 80307; 81001; 84484; 85025; 87086; 93005; 99285-25